=== PATIENT | female | born 1935 | race African-American/Black ===

== ENCOUNTER 2016-09-01 13:02 | Inpatient (IN) | payer MEDICARE, OTHER ==
[~2016-09-01] VITALS: Ht 157.5 cm; Wt 58.8 kg
[~2016-09-01 13:02] MED LIST: ATORVASTATIN CA80 MG PO; CALC-157 PO; CALC-77 PO; CHOL2000 PO; CHOL200074 PO; ESOM20CA PO; GABA-585 PO; HYDR25TA PO; INSU100I16 SQ; LEVO25TA55 PO; LISI-334 PO; Megestrol Acetate PO; PANT40TA3 PO; [UNRECOGNIZED DRUG - OTHER]; [UNRECOGNIZED DRUG - OTHER]
[2016-09-01 16:13] VITALS: BP 105/65
[2016-09-01] MEDS ORDERED: VANCOMYCIN PER PHARMACY MC PRN (16:30)
[2016-09-01] MEDS: INSULN ASP PRT/INSULIN ASPART 300 UNITS/3 ML INSULN.PEN. SQ SCH ×2 (16:30→21:00)
[2016-09-01] MEDS ORDERED: DEXTROSE 50% 25 GM / 50ML DISP.SYRIN. IV PRN (16:30)
[2016-09-01] MEDS ORDERED: VANCOMYCIN 1.5 GM in IV NORMAL SALINE 500ML 500 ML IV ONE (17:00)
[2016-09-01 17:05] LABS: ALBUMIN 3.2 g/dL (3.4-5.0); CALCIUM 9.1 mg/dL (8.5-10.1); CREATININE 1.7 mg/dL (0.6-1.0); GFR 34.9; POTASSIUM 4.9 mmol/L (3.5-5.1); TOTAL BILIRUBIN 0.4 mg/dL (0.2-1.0); TOTAL PROTEIN 6.5 g/dL (6.4-8.2)
[2016-09-01] MEDS ORDERED: INSULIN REGULAR 100 UNIT/ML 10ML VIAL. IV ONE (17:30)
[2016-09-01 17:41] LABS: BASO % 1 % (0-3); EOS # 0.1 x10^3/uL (0.0-0.7); EOS % 1 % (0-3); HEMATOCRIT 38.6 % (36.0-47.0); LYMPH # 0.9 x10^3/uL (1.0-4.8); LYMPH % 14 % (24-48); MEAN CORPUSCULAR HEMOGLOBIN 31 pg (25-35); MEAN CORPUSCULAR HGB CONC 34 g/dL (31-37); MEAN CORPUSCULAR VOLUME 92 fL (79-100); MONO # 0.4 x10^3/uL (0.0-1.1); MONO % 7 % (0-9); NEUT # 4.9 x10^3uL (1.8-7.7); NEUT % 78 % (31-73); PLATELET COUNT 150 x10^3/uL (140-400); RED CELL DISTRIBUTION WIDTH 12.7 % (11.5-14.5); WHITE BLOOD COUNT 6.3 x10^3/uL (4.0-11.0)
[2016-09-01] MEDS: IV NORMAL SALINE 1,000ML 1,000 ML IV SCH (17:46)
[2016-09-01] MEDS ORDERED: ZOLPIDEM 5 MG TABLET. PO PRN (18:15)
[2016-09-01] MEDS ORDERED: oxyCODONE/APAP 5/325 1 TAB TABLET PO PRN (18:15)
[2016-09-01 18:35] VITALS: BP 96/59
[2016-09-01 19:14] LABS: SEDIMENTATION RATE 13 (0-25)
[2016-09-01] MEDS ORDERED: LEVO125T5 PO (19:47)
[2016-09-01] MEDS ORDERED: PREG75CA PO (19:47)
[2016-09-01] MEDS ORDERED: TRIA15CR50 TP (19:47)
[2016-09-01] MEDS ORDERED: MIRA25TA PO (19:47)
[2016-09-01] MEDS ORDERED: FLUT1DIS IH (19:47)
[2016-09-01] MEDS ORDERED: OLOP5DRO EACHEYE (19:47)
[2016-09-01] MEDS ORDERED: ASPI-612 PO (19:47)
[2016-09-01] MEDS ORDERED: AMLO10TA4 PO (19:47)
[2016-09-01] MEDS ORDERED: FURO-69 PO (19:47)
[2016-09-01] MEDS ORDERED: DIPH25CA58 PO (19:47)
[2016-09-01] MEDS ORDERED: ALBU8.5H8 INH (19:47)
[2016-09-01] MEDS ORDERED: DIAZ5TAB PO (19:47)
[2016-09-01] MEDS ORDERED: MONT10TA9 PO (19:47)
[2016-09-01] MEDS ORDERED: HYDR-2762 PO (19:47)
[2016-09-01] MEDS: INSULIN ASPART 300 UNITS/3 ML INSULN.PEN SQ SCH ×2 (19:54→21:00)
[2016-09-01] MEDS ORDERED: diphenhydrAMINE HCL 25 MG CAPSULE PO PRN (20:15)
[2016-09-01] MEDS ORDERED: HYDROcodone/APAP 7.5/325MG 1 TAB TABLET PO PRN (20:15)
[2016-09-01] MEDS ORDERED: diazePAM 5 MG TABLET PO PRN (20:15)
[2016-09-01] MEDS: HYDROcodone/APAP 7.5/325MG 1 TAB TABLET PO PRN (20:52)
[2016-09-01] MEDS ORDERED: INSULN ASP PRT/INSULIN ASPART 300 UNITS/3 ML INSULN.PEN. SQ SCH (21:00)
[2016-09-01] MEDS: hydrOXYzine HCL 25 MG TABLET PO SCH (21:49)
[2016-09-01] MEDS: CALCIUM CARB/VIT D3 500/200 TABLET PO SCH (21:49)
[2016-09-01] MEDS: ATORVASTATIN CALCIUM 20 MG TABLET PO SCH (21:50)
[2016-09-01] MEDS: PREGABALIN 75 MG CAPSULE PO SCH (21:50)
[2016-09-01] MEDS: GABAPENTIN 100 MG CAPSULE. PO SCH (21:50)
[2016-09-01] MEDS: INSULIN DETEMIR 300 UNITS/3 ML INSULN.PEN. SQ SCH (21:56)
[2016-09-01 23:43] VITALS: BP 116/69
[2016-09-02 00:26] LABS: CLARITY,URINE HAZY; COLOR,URINE YELLOW; GLUCOSE,URINE >=1000 mg/dL (NEG)
[2016-09-02 00:30] LABS: BILIRUBIN,URINE NEG (NEG)
[2016-09-02 00:31] LABS: NITRITE,URINE NEG (NEG); UROBILINOGEN,URINE 0.2 mg/dL (0.2 mg/dL)
[2016-09-02 00:33] LABS: BACTERIA,URINE 0 /HPF (0-FEW); RBC,URINE 0 /HPF (0-2); SQUAMOUS EPITHELIAL CELL,UR MANY /LPF; WBC,URINE 0 /HPF (0-4)
[2016-09-02] MEDS: IV NORMAL SALINE 1,000ML 1,000 ML IV SCH ×3 (05:20→22:30)
[2016-09-02 05:29] VITALS: BP 169/75
[2016-09-02] MEDS ORDERED: LEVOTHYROXINE 25 MCG TABLET. PO SCH (06:00)
[2016-09-02] MEDS: LEVOTHYROXINE 125 MCG TABLET PO SCH (07:21)
[2016-09-02] MEDS: PANTOPRAZOLE 40 MG TABLET. PO SCH (08:16)
[2016-09-02] MEDS: INSULIN ASPART 300 UNITS/3 ML INSULN.PEN SQ SCH ×4 (08:18→20:08)
[2016-09-02] MEDS ORDERED: MEGESTROL 40 MG TABLET. PO PRN (09:00)
[2016-09-02] MEDS: GABAPENTIN 100 MG CAPSULE. PO SCH ×2 (09:57→20:01)
[2016-09-02] MEDS: MONTELUKAST 10 MG TABLET. PO SCH (09:57)
[2016-09-02] MEDS: hydrOXYzine HCL 25 MG TABLET PO SCH ×2 (09:57→20:01)
[2016-09-02] MEDS: FUROSEMIDE 20 MG TABLET PO SCH (10:03)
[2016-09-02] MEDS: LISINOPRIL 20 MG TABLET PO SCH (10:03)
[2016-09-02] MEDS: CALCIUM CARB/VIT D3 500/200 TABLET PO SCH ×2 (10:03→20:01)
[2016-09-02] MEDS: PREGABALIN 75 MG CAPSULE PO SCH ×2 (10:04→20:01)
[2016-09-02] MEDS: APIXABAN 2.5 MG TABLET PO SCH ×2 (10:08→20:01)
[2016-09-02] MEDS: INSULIN DETEMIR 300 UNITS/3 ML INSULN.PEN. SQ SCH ×2 (10:09→20:08)
[2016-09-02 11:00] VITALS: BP 122/69
--- NOTE | 2016-09-02 14:30 | RAD ---
Indication: Left hand pain and swelling for several days. The patient was administered 25 mCi technetium 99m MDP intravenously and dynamic flow, blood pool and delayed imaging over bilateral hands and wrists was performed. There is asymmetric increased blood flow to the left hand and wrist, particularly on the radial side. Mild increased blood pool activity is also seen. No significant abnormal delayed uptake is identified to suggest osteomyelitis. There is some uptake at the first CMC joint on the right consistent with degenerative change. Impression: Increased blood flow and blood pool activity in the left hand and wrist, perhaps owing to cellulitis. No findings to suggest osteomyelitis are identified.
[2016-09-02] MEDS: ONDANSETRON PF 4 MG/2 ML VIAL. IV PRN ×2 (14:38→19:12)
[2016-09-02] MEDS: MEROPENEM 1 GM in IV NORMAL SALINE 100ML 100 ML IV SCH (14:38)
[2016-09-02 14:55] VITALS: BP 126/72
--- NOTE | 2016-09-02 15:57 | RAD ---
Indication: Left leg swelling. Grayscale, color-flow and duplex Doppler evaluation left lower extremity venous system was performed. FINDINGS: There is no evidence of a left lower extremity DVT. The left lower extremity venous system demonstrates normal compressibility with normal response to augmentation and Valsalva. No soft tissue fluid collections are identified. IMPRESSION: No evidence of left lower extremity DVT.
--- NOTE | 2016-09-02 15:58 | RAD ---
Indication: Cellulitis of the left hand. Grayscale, color-flow and duplex Doppler evaluation of the venous structures the left wrist were performed. The radial and ulnar veins appear to be patent. The basilic and cephalic veins are patent. No thrombus is seen. No fluid collections are identified. Impression: No evidence of thrombus of the radial or ulnar veins or basilic and cephalic veins.
[2016-09-02] MEDS ORDERED: VANCOMYCIN 1 GM in IV NORMAL SALINE 250ML 250 ML IV SCH (17:00)
[2016-09-02] MEDS: VANCOMYCIN 1 GM in IV NORMAL SALINE 250ML 250 ML IV SCH (17:19)
[2016-09-02 18:18] VITALS: BP 107/59
[2016-09-02 18:24] VITALS: BP 150/61
[2016-09-02] MEDS: HYDROcodone/APAP 7.5/325MG 1 TAB TABLET PO PRN (19:12)
[2016-09-02] MEDS: ATORVASTATIN CALCIUM 20 MG TABLET PO SCH (20:01)
--- NOTE | 2016-09-03 00:13 | PN ---
DATE: 09/02/2016 SUBJECTIVE: The patient was admitted yesterday with cellulitis to her left hand as well as lymphangitis going upper arm. She is a poorly controlled diabetic. Her blood sugar was over 600. The patient is on vancomycin and her hand was more swollen as it was yesterday as a result of that throughout meropenem along with vancomycin per [place]'s recommendations. The patient otherwise seems to be resting fairly comfortably, making fairly good progress. Her blood sugars are down at least in the upper 100-200, which is markedly improved. Bone scan shows significant cellulitis, but not osteomyelitis. She also has swollen left leg, but she has not reported that anybody for six months. She is on Eliquis. We will get a venous Doppler on her there. OBJECTIVE: VITAL SIGNS: Otherwise, blood pressure 130/70, respiration 16, pulse 80, afebrile. GENERAL: The patient is alert and oriented. LUNGS: Diminished, but clear. CARDIOVASCULAR: Stable. EXTREMITIES: Left hand swollen, tender, red and hot, lymphangitis left forearm. We will go ahead and continue with IV antibiotic therapy. PICC line placement and make further evaluation upon those results. IMPRESSION: Cellulitis to the left hand lymphangitis SIRS, type 2 diabetes, hyperglycemia, fairly poorly controlled. Continue on IV antibiotic therapy controlling blood sugars. CYNTHIA GONZALEZ MD DR: AL/princess JOB#: [id number] / [id number]
[2016-09-03] MEDS: LEVOTHYROXINE 125 MCG TABLET PO SCH (05:58)
[2016-09-03 06:23] VITALS: BP 111/58
[2016-09-03] MEDS: INSULIN ASPART 300 UNITS/3 ML INSULN.PEN SQ SCH ×2 (07:30→12:01)
[2016-09-03] MEDS: IV NORMAL SALINE 1,000ML 1,000 ML IV SCH (08:30)
[2016-09-03] MEDS: hydrOXYzine HCL 25 MG TABLET PO SCH (08:55)
[2016-09-03] MEDS: APIXABAN 2.5 MG TABLET PO SCH (08:55)
[2016-09-03] MEDS: PREGABALIN 75 MG CAPSULE PO SCH (08:55)
[2016-09-03] MEDS: LISINOPRIL 20 MG TABLET PO SCH (08:55)
[2016-09-03] MEDS: FUROSEMIDE 20 MG TABLET PO SCH (08:55)
[2016-09-03] MEDS: GABAPENTIN 100 MG CAPSULE. PO SCH (08:55)
[2016-09-03] MEDS: MONTELUKAST 10 MG TABLET. PO SCH (08:56)
[2016-09-03] MEDS: PANTOPRAZOLE 40 MG TABLET. PO SCH (08:56)
[2016-09-03] MEDS: CALCIUM CARB/VIT D3 500/200 TABLET PO SCH (08:56)
[2016-09-03] MEDS: INSULIN DETEMIR 300 UNITS/3 ML INSULN.PEN. SQ SCH (09:00)
[2016-09-03] MEDS ORDERED: traMADol 50 MG TABLET PO PRN (10:15)
[2016-09-03] MEDS ORDERED: VANC1PLA9 IV (11:39)
[2016-09-03] MEDS ORDERED: INSU100I17 SQ (11:39)
[2016-09-03] MEDS ORDERED: MERO1VIA15 IV (11:39)
[2016-09-03] MEDS ORDERED: INSU100I27 SQ (11:39)
[2016-09-03] MEDS ORDERED: TRAM50TA PO (11:39)
[2016-09-03] MEDS ORDERED: ONDA4TAB10 SL (11:41)
[2016-09-03] MEDS: MEROPENEM 1 GM in IV NORMAL SALINE 100ML 100 ML IV SCH (11:57)
[2016-09-03] MEDS: VANCOMYCIN 1 GM in IV NORMAL SALINE 250ML 250 ML IV SCH (12:58)
[2016-09-03 13:39] LABS: VANC TR 8.3 mcg/mL (10.0-20.0)
[2016-09-03] MEDS: HYDROcodone/APAP 7.5/325MG 1 TAB TABLET PO PRN (14:44)
[2016-09-10] MEDS ORDERED: ERGOCALCIFEROL (VITAMIN D2) 50,000 UNIT CAPSULE PO SCH (16:00)
== END 2016-09-03 14:55 | disposition home or self-care (01) | DRG 872 ==
LOC: 1 SOUTH 15:42
PROVIDERS: ADMIT Family Medicine; ATTEND Family Medicine
PROC: 02HV33Z Insertion of Infusion Device into Superior Vena Cava, Percutaneous Approach (ICD-10-PCS; principal; 2016-09-02)
DX: A41.9 Sepsis, unspecified organism (principal); L03.114 Cellulitis of left upper limb; E11.65 Type 2 diabetes mellitus with hyperglycemia; Z88.2 Allergy status to sulfonamides
CPT/HCPCS: 36415; 36569; 78315; 80053; 80202; 81001; 82947; 83605; 85027; 85651; 86140; 87040; 93971; 96374; 99406; A9503; J0696; J1815; J2185; J2405; J3370; J7040; J7050; J7030

== ENCOUNTER 2018-01-11 03:54 | Inpatient (IN) | payer MEDICARE, OTHER ==
[~2018-01-11] VITALS: Ht 157.5 cm; Wt 63.5 kg
[~2018-01-11 03:54] MED LIST changes: +ALBU8.5H8 INH; +AMLO10TA4 PO; +ASPI-612 PO; +DIAZ5TAB PO; +DIPH25CA58 PO; +FLUT1DIS IH; +FURO-69 PO; +HYDR-2762 PO; +INSU100I17 SQ; +INSU100I27 SQ; +LEVO125T5 PO; +MERO1VIA15 IV; +MIRA25TA PO; +MONT10TA9 PO; +OLOP5DRO EACHEYE; +ONDA4TAB10 SL; +PREG75CA PO; +TRAM50TA PO; +TRIA15CR50 TP; +VANC1PLA9 IV
[2018-01-11] MEDS ORDERED: INSULIN REGULAR 100 UNIT/ML 3ML VIAL. IV ONE (04:30)
[2018-01-11] MEDS ORDERED: IV NORMAL SALINE 1,000ML 1,000 ML IV ONE ×2 (04:30)
--- NOTE | 2018-01-11 04:43 | ED.ADGEN ---
Past History Past Medical History: Diabetes, High Cholesterol, Hypertension, Other Past Surgical History: No Surgical History Alcohol Use: None Drug Use: None Adult General Chief Complaint Chief Complaint Elevated blood sugar HPI HPI Patient is a 82-year-old female with insulin-dependent diabetes presents with mental status changes, nausea and blood sugar greater than 600. Patient reportedly been feeling unwell for the past 2 days has had very little to eat but has been drinking fluids. As such, the patient has not taken any insulin the past 48 hours with exception of 1 dose NovoLog just prior to ED arrival. Patient's blood sugar at home read high per EMS. Patient also noted to be hypotensive and given 1 L of fluid per EMS. Patient reports generalized weakness, malaise, and also complaints of hemorrhoids and constipation and has had multiple bowel movements today. She also reports neck pain on route to the hospital, but did not complain of neck pain earlier in the day according to family members. Patient lives with her son. Additional history obtained from her daughter Kasie who is present at bedside. Patient's primary care physician is Dr Stan Iglesias..[] Review of Systems Review of Systems ROS as per HPI All other systems were reviewed and found to be within normal limits, except as documented in this note. Current Medications Current Medications Current Medications Medications (Trade) Dose Ordered Sig/Isaac Start Time Stop Time Status Last Admin Dose Admin Famotidine (Pepcid Vial) 20 mg 1X ONCE 01/11/18 05:30 01/11/18 05:31 DC 01/11/18 05:02 20 MG Fentanyl Citrate (Fentanyl 2ml Vial) 25 mcg 1X ONCE 01/11/18 05:30 01/11/18 05:31 DC 01/11/18 04:58 25 MCG Insulin Human Regular (HumuLIN R VIAL) 10 unit 1X ONCE 01/11/18 04:30 01/11/18 04:31 DC 01/11/18 04:30 10 UNIT Ondansetron HCl (Zofran) 4 mg STK-MED ONCE 01/11/18 04:55 01/11/18 04:56 DC Potassium Chloride/Sodium Chloride 1,000 ml @ As Directed STK-MED ONCE 01/11/18 05:41 01/11/18 05:42 DC Sodium Chloride 1,000 ml @ 1,000 mls/hr 1X ONCE 01/11/18 04:30 01/11/18 05:30 DC 10/13/18 05:07 1,000 MLS/HR Allergies Allergies Allergies Coded Allergies Type Severity Reaction Last Updated Verified Sulfa (Sulfonamide Antibiotics) Allergy Intermediate 06/30/13 Yes Physical Exam Physical Exam Constitutional: Somnolent, Moaning between deep breaths, acutely ill appearing.[ ] HENT: Normocephalic, atraumatic, bilateral external ears normal, dry mucous membranes, nose normal. [] Eyes: PERRLA, EOMI, conjunctiva normal. [] Neck: Normal range of motion, no tenderness. [] Cardiovascular:Heart rate regular rhythm, no murmur [] Lungs & Thorax: Tachypnea, deep breathing, lungs clear.[] Abdomen: Bowel sounds normal, soft, no tenderness. [] Skin: Warm, dry, appropriate for ethnicity.[] Back: No tenderness. [] Extremities, No edema. [] Neurologic: Alert and oriented X 3, normal motor function, normal sensory function, no focal deficits noted. [] Current Patient Data Vital Signs Vital Signs Date Time Temp Pulse Resp B/P (MAP) Pulse Ox O2 Delivery O2 Flow Rate FiO2 01/11/18 05:15 16 Room Air 01/11/18 04:44 87 113/57 (75) 100 01/11/18 03:55 97.9 Lab Results Laboratory Tests Test 01/11/18 03:14 01/11/18 04:14 01/11/18 05:02 01/11/18 05:21 Lipase 126 U/L (73-393) White Blood Count 10.5 x10^3/uL (4.0-11.0) Red Blood Count 4.92 x10^6/uL (3.50-5.40) Hemoglobin 15.1 g/dL (12.0-15.5) Hematocrit 45.8 % (36.0-47.0) Mean Corpuscular Volume 93 fL (79-100) Mean Corpuscular Hemoglobin 31 pg (25-35) Mean Corpuscular Hemoglobin Concent 33 g/dL (31-37) Red Cell Distribution Width 12.8 % (11.5-14.5) Platelet Count 202 x10^3/uL (140-400) Neutrophils (%) (Auto) 86 % (31-73) H Lymphocytes (%) (Auto) 12 % (24-48) L Monocytes (%) (Auto) 1 % (0-9) Eosinophils (%) (Auto) 0 % (0-3) Basophils (%) (Auto) 0 % (0-3) Neutrophils # (Auto) 9.0 x10^3uL (1.8-7.7) H Lymphocytes # (Auto) 1.2 x10^3/uL (1.0-4.8) Monocytes # (Auto) 0.2 x10^3/uL (0.0-1.1) Eosinophils # (Auto) 0.0 x10^3/uL (0.0-0.7) Basophils # (Auto) 0.0 x10^3/uL (0.0-0.2) Prothrombin Time 11.9 SEC (9.4-11.4) H Prothrombin Time INR 1.2 (0.9-1.1) H Urine Collection Type U cath Urine Color Straw Urine Clarity Clear Urine pH 5.5 Urine Specific [place] <=1.005 Urine Protein Trace (NEG-TRACE) Urine Glucose (UA) >=1000 mg/dL (NEG) Urine Ketones (Stick) Trace mg/dL (NEG) Urine Blood Trace (NEG) Urine Nitrite Neg (NEG) Urine Bilirubin Neg (NEG) Urine Urobilinogen Dipstick 0.2 mg/dL (0.2 mg/dL) Urine Leukocyte Esterase Neg (NEG) Urine RBC Rare /HPF (0-2) Urine WBC 0 /HPF (0-4) Urine Squamous Epithelial Cells Occ /LPF Urine Bacteria 0 /HPF (0-FEW) Sodium Level 138 mmol/L (136-145) Potassium Level 2.9 mmol/L (3.5-5.1) *L Chloride Level 99 mmol/L (98-107) Carbon Dioxide Level 20 mmol/L (21-32) L Anion Gap 19 (6-14) H Blood Urea Nitrogen 20 mg/dL (7-20) Creatinine 1.9 mg/dL (0.6-1.0) H Estimated GFR (Cockcroft-Gault) 30.6 BUN/Creatinine Ratio 11 (6-20) Glucose Level 610 mg/dL (70-99) *H Lactic Acid Level 9.7 mmol/L (0.4-2.0) *H Calcium Level 9.7 mg/dL (8.5-10.1) Magnesium Level 1.9 mg/dL (1.8-2.4) Total Bilirubin 0.9 mg/dL (0.2-1.0) Aspartate Amino Transferase (AST) 44 U/L (15-37) H Alanine Aminotransferase (ALT) 37 U/L (14-59) Alkaline Phosphatase 253 U/L (46-116) H Troponin I Quantitative < 0.017 ng/mL (0-0.055) Total Protein 6.1 g/dL (6.4-8.2) L Albumin 3.1 g/dL (3.4-5.0) L Albumin/Globulin Ratio 1.0 (1.0-1.7) Salicylates Level 5.8 mg/dL (2.8-20.0) Salicylate Last Dose Date 01/11/2018 Salicylate Last Dose Time 0100 Acetone Level Neg (NEG) Blood pH 7.44 (7.35-7.45) Blood Gas PCO2 20 mmHg (35-45) L Blood Gas PO2 108 mmHg (71-100) H Blood Gas HCO3 14 mmol/L (22-26) L Arterial Bld O2 Saturation (Calc) 99 % (92-99) FiO2 21 % Glucose (Fingerstick) 454 mg/dL (70-99) H EKG EKG [EKG: Sinus rhythm, rate 87, nonspecific ST-T wave changes, QTC 498. Interpretation by this physician.] Radiology/Procedures Radiology/Procedures [CT abdomen pelvis: Large fecal impaction, no other acute process identified per radiology report. CT angio abdomen/pelvis: Pending ] Course & Med Decision Making Course & Med Decision Making Pertinent Labs and Imaging studies reviewed. (See chart for details) [Aggressive IV fluids, insulin therapy given. Blood sugar improved from 610- 1454. Potassium noted to be 2.9. IV fluids with potassium additive replacement given. CT abdomen and pelvis without contrast reviewed with radiologist, and Dr. Vaz on-call for general surgery at [facility]. Given the patient has an elevated lactic acid greater than 9, is felt necessary to obtain a CT angiogram of the abdomen and pelvis to rule out ischemic bowel. Risks versus benefits versus alternatives discussed in detail with the patient's daughter who is medical decision maker. Consent given to proceed with CT angiogram. CT is pending at the time of this dictation. Care and being transitioned to Dr. Adelfo Bush at 06:00. It is anticipated that if the is evidence of ischemic bowel that the patient will require an answer to [facility].] Final Impression Final Impression [] Ayaan Disclaimer Dragzofia Disclaimer This electronic medical record was generated, in whole or in part, using a voice recognition dictation system. NOEL MARIE DO Jan 11, 2018 04:43
[2018-01-11 04:44] LABS: BASO % 0 % (0-3); EOS % 0 % (0-3); HEMATOCRIT 45.8 % (36.0-47.0); HEMOGLOBIN 15.1 g/dL (12.0-15.5); LYMPH # 1.2 x10^3/uL (1.0-4.8); LYMPH % 12 % (24-48); MEAN CORPUSCULAR HEMOGLOBIN 31 pg (25-35); MEAN CORPUSCULAR HGB CONC 33 g/dL (31-37); MEAN CORPUSCULAR VOLUME 93 fL (79-100); MONO # 0.2 x10^3/uL (0.0-1.1); MONO % 1 % (0-9); NEUT % 86 % (31-73); PLATELET COUNT 202 x10^3/uL (140-400); RED BLOOD COUNT 4.92 x10^6/uL (3.50-5.40); RED CELL DISTRIBUTION WIDTH 12.8 % (11.5-14.5); WHITE BLOOD COUNT 10.5 x10^3/uL (4.0-11.0)
[2018-01-11 04:48] LABS: BILIRUBIN,URINE NEG (NEG); CLARITY,URINE CLEAR; COLOR,URINE STRAW; GLUCOSE,URINE >=1000 mg/dL (NEG)
[2018-01-11 04:49] LABS: BACTERIA,URINE 0 /HPF (0-FEW); NITRITE,URINE NEG (NEG); RBC,URINE RARE /HPF (0-2); SQUAMOUS EPITHELIAL CELL,UR OCC /LPF; UROBILINOGEN,URINE 0.2 mg/dL (0.2 mg/dL); WBC,URINE 0 /HPF (0-4)
[2018-01-11] MEDS ORDERED: ONDANSETRON PF 4 MG/2 ML VIAL. ONE (04:55)
[2018-01-11 05:05] LABS: SALIC 5.8 mg/dL (2.8-20.0)
--- NOTE | 2018-01-11 05:07 | RAD ---
Chest AP portable at 0415: Reason for examination: Short of breath with low chest pain and upper abdominal pain. Comparison is made to previous study dated 10/02/2009. The heart size is normal. Mediastinum is unremarkable. Lung downs show a calcified granuloma in the mid right lung field. No consolidative infiltrates or pleural effusions are seen. No acute bony abnormalities are seen. Impression: No acute cardiopulmonary disease. Electronically signed by: Silvana Miller MD (01/11/2018 5:04 AM) [place] [id number]
[2018-01-11 05:16] LABS: ALBUMIN 3.1 g/dL (3.4-5.0); CALCIUM 9.7 mg/dL (8.5-10.1); CREATININE 1.9 mg/dL (0.6-1.0); GFR 30.6; MAGNESIUM 1.9 mg/dL (1.8-2.4); TOTAL BILIRUBIN 0.9 mg/dL (0.2-1.0); TOTAL PROTEIN 6.1 g/dL (6.4-8.2)
[2018-01-11 05:16] LABS: BGAS PH 7.44 (7.35-7.45)
[2018-01-11 05:19] LABS: POTASSIUM 2.9 mmol/L (3.5-5.1)
[2018-01-11] MEDS ORDERED: ONDANSETRON PF 4 MG/2 ML VIAL. IV ONE ×2 (05:30→06:30)
[2018-01-11] MEDS ORDERED: FAMOTIDINE 20 MG/2 ML VIAL IVP ONE (05:30)
[2018-01-11] MEDS ORDERED: POTASSIUM CL 40MEQ IN 0.9%NACL 1,000 ML IV ONE ×2 (05:41→06:00)
--- NOTE | 2018-01-11 05:43 | RAD ---
CT abdomen and pelvis without contrast: Reason for examination: Severe abdominal pain and flank pain with nausea and vomiting for 2 days. Helical images were obtained through the abdomen pelvis with no intravenous or oral contrast administered. Reconstruction was performed in sagittal and coronal planes. Exposure: One or more of the following individualized dose reduction techniques were utilized for this examination: 1. Automated exposure control 2. Adjustment of the mA and/or kV according to patient size 3. Use of iterative reconstruction technique. The lung bases are clear. The heart size is normal with no pericardial effusion. No abnormality seen at the liver, spleen, adrenal glands or pancreas. Gallbladder surgically absent. The abdominal aorta and inferior vena cava show no acute abnormalities but there are arteriosclerotic vascular calcifications. The kidneys show no renal masses, renal calculi, hydronephrosis or evidence of obstructive uropathy. The intestinal tract however shows a markedly distended sigmoid colon and rectum with large amount of stool present. There does not appear to be site of obstruction. The small intestine and proximal colon shows some mild dilatation but no site of obstruction. The stomach shows a large amount of gastric content and fluid. A Mehta catheter is present in the bladder and the bladder is decompressed. Uterus contains a calcified fibroid measuring at least 4.5 cm in greatest dimension. No free fluid or free air is seen in the abdomen or pelvis. IMPRESSION: No gallstones are obstructive uropathy. Marked distention of the sigmoid colon and rectum with a large amount of fecal material with mild dilatation of the proximal colon, small intestine and stomach. A focal site of obstruction is not identified. 4.5 cm calcified uterine fibroid. Electronically signed by: Silvana Miller MD (01/11/2018 5:40 AM) [facility]
[2018-01-11] MEDS ORDERED: CONTRAST GIVEN MC PRN (06:15)
[2018-01-11] MEDS ORDERED: IOHEXOL 300 MG/ML 75 ML VIAL. IV ONE (06:30)
--- NOTE | 2018-01-11 08:02 | RAD ---
PQRS Compliance Statement: One or more of the following individualized dose reduction techniques were utilized for this examination: 1. Automated exposure control 2. Adjustment of the mA and/or kV according to patient size 3. Use of iterative reconstruction technique CT ANGIOGRAPHY ABD AND PELVIS Clinical Indication: abd pain, blockage, x 1 day, Elevated lactic acid Comparison: CT abdomen and pelvis without contrast, earlier same day. Technique: Helical CT imaging of the abdomen and pelvis is performed after 60 cc of Omnipaque 300 IV contrast using angiogram protocol. 3-D MIP reconstructions of the abdominal aorta performed. Findings: The visualized descending thoracic aorta is normal in caliber. The celiac and superior mesenteric arteries are patent. Right and left main renal arteries are patent. Small caliber accessory left renal artery. The inferior mesenteric artery is patent, small caliber. Moderate atherosclerotic calcification distal abdominal aorta. No aneurysm. Atherosclerotic iliac arteries. Moderate narrowing of the proximal right internal iliac artery. Mild atherosclerotic disease of the right external iliac artery and femoral arteries. Similar finding on the left. No high-grade stenosis. Mild atelectasis in the left lower lobe. Cardiac size normal. Coronary artery disease. Cholecystectomy. Liver, arterial phase spleen, pancreas, and adrenal glands are normal. Kidneys enhance symmetrically, no hydronephrosis. Small right renal cyst. Stomach is not well distended accentuating wall thickness. Question gastric fundal diverticulum. No small bowel obstruction. The rectum is moderately distended with stool. There is borderline wall thickening. There is surrounding induration. There is wall thickening of the distal transverse colon and descending colon with mucosal hyperenhancement. There is free fluid in the upper pelvis. Calcified uterine fibroid. Mehta catheter in decompressed urinary bladder. Limited evaluation of the urinary bladder. Degenerative spondylosis of the thoracolumbar spine. Vacuum disc phenomenon at several levels. Large Schmorl's node superior endplate of L5. IMPRESSION: 1. Abdominal aorta branches are patent. 2. There is moderate distention of the rectosigmoid colon with stool compatible with fecal impaction. There is surrounding induration. No pneumatosis is seen. 3. There is wall thickening of the distal half of the colon suggestive of nonspecific colitis, probably infectious or inflammatory disease. Ischemic colitis less likely. 4. There is moderate upper pelvic free fluid. 5. Calcified uterine fibroid. Electronically signed by: Ebenezer Unger MD (01/11/2018 7:59 AM) [facility]
[2018-01-11 08:41] LABS: CALCIUM 8.8 mg/dL (8.5-10.1); CREATININE 1.4 mg/dL (0.6-1.0); GFR 43.6
[2018-01-11] MEDS ORDERED: ONDANSETRON PF 4 MG/2 ML VIAL. IV PRN (09:00)
--- NOTE | 2018-01-11 09:04 | EKG ---
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
[2018-01-11 09:37] VITALS: BP 101/66
[2018-01-11] MEDS ORDERED: HYDROcodone/APAP 7.5/325MG 1 TAB TABLET PO PRN (11:00)
[2018-01-11] MEDS ORDERED: diazePAM 5 MG TABLET PO PRN (11:00)
[2018-01-11] MEDS ORDERED: ALBUTEROL SULFATE 8GM INHALER. INH PRN (11:00)
[2018-01-11] MEDS ORDERED: NON FORMULARY ITEM (Cholecalciferol (Vitamin D3) (Vitamin D) 50,000 UNIT) PO SCH (11:00)
[2018-01-11] MEDS ORDERED: traMADol 50 MG TABLET PO PRN (11:00)
[2018-01-11] MEDS ORDERED: ELECTROLYTE (NON-ICU) PROTOCOL MC PRN (11:15)
[2018-01-11] MEDS ORDERED: BISACODYL 10 MG SUPP.RECT PR ONE (11:15)
[2018-01-11] MEDS ORDERED: MINERAL OIL 133 ML ENEMA. PR ONE (11:30)
[2018-01-11] MEDS ORDERED: NON FORMULARY ITEM (Insulin Aspart (Novolog Flexpen) 0 UNITS) SQ SCH (11:30)
[2018-01-11 12:22] VITALS: BP 83/53
[2018-01-11] MEDS ORDERED: ALBUTEROL SULFATE 2.5 MG/3 ML NEBU. NEB PRN (13:45)
[2018-01-11] MEDS ORDERED: ONDANSETRON 4MG ODT 4TABLET STARTPACK. PO SCH (14:00)
[2018-01-11] MEDS ORDERED: IV NORMAL SALINE 500ML 500 ML IV ONE (14:00)
[2018-01-11] MEDS: POTASSIUM CHLORIDE 10MEQ 100 ML IV SCH ×4 (14:39→17:34)
[2018-01-11] MEDS ORDERED: DEXTROSE 50% 25 GM / 50ML DISP.SYRIN. IV PRN (14:45)
[2018-01-11 15:24] VITALS: BP 103/72
[2018-01-11] MEDS: TRIAMCINOLONE ACETONIDE 0.1% TOPICAL CREAM 15GM TUBE. TP SCH ×2 (15:44→21:45)
[2018-01-11] MEDS: INSULIN LISPRO 300 UNITS/3 ML INSULN.PEN. SQ SCH ×2 (16:37→20:30)
[2018-01-11] MEDS: ALBUTEROL SULFATE 2.5 MG/3 ML NEBU. NEB SCH ×2 (16:55→20:35)
[2018-01-11] MEDS: IV NORMAL SALINE 1,000ML 1,000 ML IV SCH ×3 (17:00→21:09)
[2018-01-11 19:45] VITALS: BP 106/64
--- NOTE | 2018-01-11 19:52 | HP ---
ADMIT DATE: 01/11/2018 HISTORY OF PRESENT ILLNESS: An 82-year-old female came in through the Emergency Room by EMS. The patient was having severe abdominal pain. She says she has been sick for the last week, but refused to come in to the hospital or clinic. The patient has been having a little to eat or drink for the last couple of days. She is a diabetic, is poorly controlled. Her sugar was over 600. When she first came in, she was extremely hypotensive. EMS gave her a liter of fluids. The patient also has been complaining of abdominal pain, lower back pain as well as hemorrhoids. The patient was found to have a large impaction as well as having colitis of her colon. The patient was admitted for a number of reasons, sepsis basically from her colitis, hypotension, and the like. PAST MEDICAL HISTORY: As noted, diabetes, peripheral neuropathy of her feet, hypercholesterolemia, hypertension, colitis, hemorrhoids, abdominal pain, laparoscopic cholecystectomy, nausea, vomiting, GERD, tubal ligation, abnormal uterine bleeding, arthritis, osteoarthritis, osteoporosis, diabetes, hypothyroidism. SOCIAL HISTORY: History of smoking, smoked for about 75 years. The patient has a history of skin cancer. Vaccinations for influenza last year, pneumococcal up-to-date. As noted, the patient continues to try to smoke. Denies alcohol or drug use. Lives at home by herself. FAMILY HISTORY: Father with diabetes, mother with some form of cancer. ALLERGIES: SULFA DRUGS. MEDICATIONS: Include ProAir inhaler, Lipitor 80 mg, Norvasc 10 mg, lisinopril 20 mg, aspirin 81 mg, hydrocodone, gabapentin 100 mg b.i.d., Lyrica 75 mg, diazepam 5 mg q.6 p.r.n., hydroxyzine, calcium carbonate, furosemide, timolol eyedrops, insulin, thyroid levothyroxine 125 mcg daily, triamcinolone, and Myrbetriq 25 mg at bedtime. REVIEW OF SYSTEMS: Positive for nausea, vomiting, severe abdominal pain, change in mental status, extreme weakness, failure to thrive, diaphoresis. Denies chest pain or shortness of breath per se, but she is extremely weak and very, very weak, and sedate. PHYSICAL EXAMINATION: VITAL SIGNS: Blood pressure 92/52, respiratory rate 12, pulse 100, afebrile. HEENT: The patient is arousable, alert, but dry mucous membranes, dry skin. The patient's eyes were PERRLA. Mouth and throat: Dry mucous membranes. NECK: Supple. LUNGS: Diminished, but clear. CARDIOVASCULAR: Regular sinus rhythm. ABDOMEN: Soft, diffuse tenderness especially in the. EXTREMITIES: No clubbing, cyanosis, or edema. NEUROLOGIC: The patient was alert and oriented x 2, for now, although she is very slow and answering probably secondary to her dehydration and the like. LABORATORY DATA: As noted demonstrated the sugar of 600. Her CBC was basically unremarkable. Her potassium was also low at 2.9. Lactic acid was as high as 9.7. TSH elevated at 11. The patient nearly given large copious amounts of fluid, antibiotics, potassium supplementation, close monitoring obviously in all other situations there. IMPRESSION: Change in mental status, sepsis, colitis, bowel impaction, type 2 diabetes, extremely poorly controlled, hypokalemia, chronic kidney disease stage 3. PLAN: The patient continued on intravenous fluids, intravenous antibiotic therapy, and make further evaluation on her as indicated. CYNTHIA GONZALEZ MD DR: AL/princess JOB#: [id number] / [id number]
[2018-01-11] MEDS: CALCIUM CARB/VIT D3 500/200 TABLET PO SCH (20:17)
[2018-01-11] MEDS: KETOTIFEN FUMARATE 0.025% OPHT SOLUTION BOTTLE. OU SCH (20:26)
[2018-01-11] MEDS: BUDESONIDE 0.5 MG/2 ML NEBU NEB SCH (20:35)
[2018-01-11] MEDS: INSULIN GLARGINE 300 UNITS/3 ML INSULN.PEN. SQ SCH (20:41)
[2018-01-11] MEDS ORDERED: NON FORMULARY ITEM (Fluticasone/Salmeterol (Advair 100-50 Diskus) 1 PUFF) IH SCH (21:00)
[2018-01-11] MEDS ORDERED: GABAPENTIN 100 MG CAPSULE. PO SCH (21:00)
[2018-01-11] MEDS ORDERED: hydrOXYzine HCL 25 MG TABLET PO SCH (21:00)
[2018-01-11] MEDS ORDERED: ATORVASTATIN CALCIUM 20 MG TABLET PO SCH (21:00)
[2018-01-11] MEDS: PREGABALIN 75 MG CAPSULE PO SCH (21:45)
[2018-01-11 22:54] VITALS: BP 102/65
[2018-01-12] MEDS: IV NORMAL SALINE 1,000ML 1,000 ML IV SCH (05:14)
[2018-01-12 05:26] VITALS: BP 107/69
[2018-01-12] MEDS: ALBUTEROL SULFATE 2.5 MG/3 ML NEBU. NEB SCH (05:29)
[2018-01-12] MEDS ORDERED: LEVOTHYROXINE 125 MCG TABLET PO SCH (06:00)
[2018-01-12] MEDS ORDERED: LEVOTHYROXINE 100 MCG TABLET PO SCH (06:00)
[2018-01-12 07:23] LABS: BASO % 0 % (0-3); EOS % 0 % (0-3); HEMATOCRIT 40.1 % (36.0-47.0); HEMOGLOBIN 13.3 g/dL (12.0-15.5); LYMPH # 0.2 x10^3/uL (1.0-4.8); LYMPH % 2 % (24-48); MEAN CORPUSCULAR HEMOGLOBIN 31 pg (25-35); MEAN CORPUSCULAR HGB CONC 33 g/dL (31-37); MEAN CORPUSCULAR VOLUME 93 fL (79-100); MONO # 0.3 x10^3/uL (0.0-1.1); MONO % 3 % (0-9); NEUT # 10.6 x10^3uL (1.8-7.7); NEUT % 95 % (31-73); PLATELET COUNT 136 x10^3/uL (140-400); RED BLOOD COUNT 4.32 x10^6/uL (3.50-5.40); RED CELL DISTRIBUTION WIDTH 13.6 % (11.5-14.5); WHITE BLOOD COUNT 11.1 x10^3/uL (4.0-11.0)
[2018-01-12 07:38] LABS: ALBUMIN 2.1 g/dL (3.4-5.0); ALBUMIN/GLOBULIN RATIO 0.7 (1.0-1.7); CALCIUM 8.4 mg/dL (8.5-10.1); CREATININE 1.6 mg/dL (0.6-1.0); GFR 37.3; POTASSIUM 5.2 mmol/L (3.5-5.1); TOTAL BILIRUBIN 0.6 mg/dL (0.2-1.0)
[2018-01-12] MEDS: BUDESONIDE 0.5 MG/2 ML NEBU NEB SCH (08:00)
[2018-01-12] MEDS ORDERED: ASPIRIN 81 MG TAB.CHEW PO SCH (08:00)
[2018-01-12 08:02] LABS: % BANDS 26 % (0-9); % LYMPHS 2 % (24-48); % METAS 4 % (0-0); % MYELOS 1 % (0-0); % SEGS 67 % (35-66)
[2018-01-12 08:03] LABS: PLT ESTIMATE DECREASED (ADEQUATE); TOXIC GRANULATION SLIGHT; TOXIC VACUOLATION SLIGHT
[2018-01-12 08:05] LABS: POLYCHROMASIA PRESENT
[2018-01-12] MEDS: CALCIUM CARB/VIT D3 500/200 TABLET PO SCH (08:31)
[2018-01-12] MEDS: PREGABALIN 75 MG CAPSULE PO SCH (08:32)
[2018-01-12] MEDS: KETOTIFEN FUMARATE 0.025% OPHT SOLUTION BOTTLE. OU SCH (08:32)
[2018-01-12] MEDS: INSULIN LISPRO 300 UNITS/3 ML INSULN.PEN. SQ SCH ×2 (08:48→11:30)
[2018-01-12] MEDS: TRIAMCINOLONE ACETONIDE 0.1% TOPICAL CREAM 15GM TUBE. TP SCH (08:48)
[2018-01-12] MEDS: INSULIN GLARGINE 300 UNITS/3 ML INSULN.PEN. SQ SCH (08:49)
[2018-01-12] MEDS ORDERED: LACTOBACILLUS RHAMNOSUS GG 1 CAPSULE. PO SCH (09:00)
[2018-01-12] MEDS ORDERED: MONTELUKAST SODIUM PO SCH (09:00)
[2018-01-12] MEDS ORDERED: FUROSEMIDE 20 MG TABLET PO SCH (09:00)
[2018-01-12] MEDS ORDERED: amLODIPine BESYLATE 10 MG TABLET PO SCH (09:00)
[2018-01-12] MEDS ORDERED: LISINOPRIL 20 MG TABLET PO SCH (09:00)
[2018-01-12] MEDS ORDERED: MIRABEGRON 25 MG TAB.ER.24H PO SCH (09:00)
[2018-01-12 11:20] VITALS: BP 93/62
[2018-01-12] MEDS ORDERED: VANCOMYCIN PER PHARMACY MC PRN (12:00)
[2018-01-12] MEDS ORDERED: VANCOMYCIN 125 MG/2.5 ML ORAL SOLUTION. PO SCH (13:00)
== END 2018-01-12 13:20 | disposition short-term general hospital (02) | DRG 871 ==
LOC: ER 03:54 → 1 SOUTH 08:57
PROVIDERS: ADMIT Family Medicine; ATTEND Family Medicine
DX: A41.9 Sepsis, unspecified organism (principal); N17.0 Acute kidney failure with tubular necrosis; G92 Toxic encephalopathy; E03.9 Hypothyroidism, unspecified; E11.42 Type 2 diabetes mellitus with diabetic polyneuropathy; E11.65 Type 2 diabetes mellitus with hyperglycemia; E78.00 Pure hypercholesterolemia, unspecified; E87.6 Hypokalemia; I12.9 Hypertensive chronic kidney disease with stage 1 through stage 4 chronic kidney disease, or unspecified chronic kidney disease; E11.22 Type 2 diabetes mellitus with diabetic chronic kidney disease; N18.3 Chronic kidney disease, stage 3 (moderate); K21.9 Gastro-esophageal reflux disease without esophagitis; K52.9 Noninfective gastroenteritis and colitis, unspecified; M19.90 Unspecified osteoarthritis, unspecified site; K56.41 Fecal impaction; M81.0 Age-related osteoporosis without current pathological fracture; Z79.4 Long term (current) use of insulin; Z83.3 Family history of diabetes mellitus; Z85.828 Personal history of other malignant neoplasm of skin; Z87.891 Personal history of nicotine dependence; Z88.2 Allergy status to sulfonamides; Z90.49 Acquired absence of other specified parts of digestive tract; Z98.51 Tubal ligation status; Z79.899 Other long term (current) drug therapy
CPT/HCPCS: 36415; 51702; 71045; 74174; 74176; 80048; 80053; 81001; 82010; 82803; 82947; 83605; 83690; 83735; 84443; 84484; 85007; 85025; 85610; 87040; 93005; 94640; 96361; 96365; 96366; 96375; 96376; 99406; G0480; J0696; J1815; J1956; J2405; J3010; J3480; J7040; J7613; J7626; Q9967; S0028; 99285-25; J7030

== ENCOUNTER 2018-02-16 07:44 | Emergency (ER) | payer MEDICARE, OTHER ==
[~2018-02-16] VITALS: Ht 157.5 cm; Wt 63.5 kg
[2018-02-16 07:51] VITALS: BP 128/62
--- NOTE | 2018-02-16 08:47 | RAD ---
EXAM: CT HEAD WITHOUT IV CONTRAST CLINICAL HISTORY: fell today, headache/dizziness with neck pain COMPARISON: None. TECHNIQUE: Routine CT of the head without contrast. Soft tissues and bone windows were reviewed. PQRS compliance statement - One or more of the following individualized dose reduction techniques were utilized for this study: 1. Automated exposure control 2. Adjustment of the mA and/or kV according to patient size 3. Use of iterative reconstruction technique FINDINGS: There is no evidence of hemorrhage, mass or extra-axial fluid collection. Rene-white differentiation is maintained with no evidence of edema. There are non-specific foci of hypodensity in the periventricular and subcortical white matter of the cerebral hemispheres. There is no mass effect or shift of the intracranial structures. The ventricles and cerebral sulci are prominent for the patients stated age consistent with generalized cerebral volume loss. The cerebellum and brainstem are unremarkable. The calvarium demonstrates no evidence of fracture or focal lesion. There is normal aeration of the visualized paranasal sinuses and mastoid air cells. The visualized portions of the orbits are normal. IMPRESSION: 1. No evidence for acute intracranial process. EXAM: CT CERVICAL SPINE WITHOUT IV CONTRAST CLINICAL HISTORY: fell today, headache/dizziness with neck pain COMPARISON: None available. TECHNIQUE: Helical CT of the cervical spine was performed. Axial, coronal and sagittal reformatted images were also performed. PQRS compliance statement - One or more of the following individualized dose reduction techniques were utilized for this study: 1. Automated exposure control 2. Adjustment of the mA and/or kV according to patient size 3. Use of iterative reconstruction technique FINDINGS: Vertebral body heights are preserved. No evidence of acute fracture. Mild multilevel disc height loss most prominent at C4-5, C5-6 and C7-T1 with associated calcifications. Small anterior endplate osteophytes are seen. Straightening of the normal cervical lordosis. Trace anterolisthesis of C3 on C4 measures 2 mm. C2-C3: No significant central canal stenosis or neural foraminal narrowing C3-C4: Trace anterolisthesis of C3 on C4 with small diffuse disc osteophyte complex causes mild central canal stenosis and no significant neural foraminal narrowing. C4-C5: Small posterior disc osteophyte complex causes no significant central canal stenosis and mild left neural foraminal narrowing. C5-C6: Small posterior disc osteophyte complex causes no significant central canal stenosis or neural foraminal narrowing. C6-C7: No significant central canal stenosis or neural foraminal narrowing. C7-T1: No significant central canal stenosis or neural foraminal narrowing Nonspecific sclerotic focus within the posterior elements of T2. If there is a known history of malignancy, metastasis may have similar appearance. Alternatively bone island or prior stress reaction may result in similar appearance. IMPRESSION: 1. No evidence of acute fracture. 2. Trace anterolisthesis of C3 on C4 is likely degenerative. 3. Multilevel degenerative changes as above 4. Nonspecific sclerotic focus within the posterior elements of T2. If there is a known history of malignancy, metastasis may have similar appearance. Alternatively bone island or prior stress reaction may result in similar appearance. Electronically signed by: Gopal Lizama MD (02/16/2018 8:44 AM) [facility]
--- NOTE | 2018-02-16 08:56 | RAD ---
Exam:Right ribs with PA chest Date: 02/16/2018 8:31 AM Comparison: No prior Indication: fell today, right rib pain Findings/ Impression: The heart is not enlarged. Mediastinal and hilar contours are normal. Patchy left lung base opacities, possibly atelectasis or developing consolidation. No pleural effusion or pneumothorax. AP, Oblique and Spot images of the right ribs are negative for acute displaced rib fracture. Negative focal pleural elevation. Symmetrical intercostal spacing. Of note, and acute non-displaced rib fracture can be radiographically occult on initial imaging. Large volume colonic stool content is partially profiled. Electronically signed by: Gopal Lizama MD (02/16/2018 8:53 AM) [facility]
[2018-02-16] MEDS ORDERED: MAGN296S9 PO (09:26)
--- NOTE | 2018-02-16 09:26 | PHYS DOC ---
Past History Past Medical History: Anxiety, Arthritis, Diabetes, High Cholesterol, Hyperthyroid Past Surgical History: Cholecystectomy Alcohol Use: None Drug Use: None Adult General Chief Complaint Chief Complaint: RIB PAIN HPI HPI Patient is a 82 year old female resident of detention who brought in by EMS because of a fall last night and pain in right hip. Patient states she has had right lateral and lower leg pain for the last 2or 3 days after she had physical therapy without any injury as a constant pain that getting force with movement without shortness of breath. Patient state last night she had a fall at the shower when she wanted to wear her gown and her pain getting worse. She denies focal neuro deficit, left-sided chest pain, fever and chills. Review of Systems Review of Systems Constitutional: Denies fever or chills [] Eyes: Denies change in visual acuity, redness, or eye pain [] HENT: Denies nasal congestion or sore throat [] Respiratory: Denies cough or shortness of breath [] Cardiovascular: No additional information not addressed in HPI [] GI: Denies abdominal pain, nausea, vomiting, bloody stools or diarrhea [] : Denies dysuria or hematuria [] Musculoskeletal: Denies back pain or joint pain [] Integument: Denies rash or skin lesions [] Neurologic: Denies headache, focal weakness or sensory changes [] Endocrine: Denies polyuria or polydipsia [] All other systems were reviewed and found to be within normal limits, except as documented in this note. Allergies Allergies Allergies Coded Allergies Type Severity Reaction Last Updated Verified Sulfa (Sulfonamide Antibiotics) Allergy Intermediate 06/30/13 Yes Physical Exam Physical Exam Constitutional: Well developed, well nourished, mild distress, non-toxic appearance. [] HENT: Normocephalic, atraumatic Eyes: PERRLA, EOMI, conjunctiva normal, no discharge. [] Neck: Normal range of motion, no tenderness, supple, no stridor. [] Cardiovascular:Heart rate regular rhythm, no murmur [] Lungs & Thorax: Bilateral breath sounds clear to auscultation, right side of chest without contusion or crepitation or tenderness Abdomen: Bowel sounds normal, soft, no tenderness, no masses, no pulsatile masses. [] Skin: Warm, dry, no erythema, no rash. [] Back: No tenderness, no CVA tenderness. [] Extremities: No tenderness, no cyanosis, no clubbing, ROM intact, no edema. [] Neurologic: Alert and oriented X 3, normal motor function, normal sensory function, no focal deficits noted. [] Psychologic: Affect normal, judgement normal, mood normal. [] Current Patient Data Vital Signs Vital Signs Date Time Temp Pulse Resp B/P (MAP) Pulse Ox O2 Delivery O2 Flow Rate FiO2 02/16/18 07:51 97.9 88 20 98 Room Air EKG EKG [] Radiology/Procedures Radiology/Procedures [address] [address] IMAGING REPORT Signed PATIENT: AMARIS ROSALES ACCOUNT: [id number] : 1935 LOCATION: ER AGE: 82 SEX: F EXAM STATUS: PRE ER ORD. PHYSICIAN: WASHINGTON RIVERS MD REASON: fall PROCEDURE: CT HEAD AND CERVICAL SPINE WO EXAM: CT HEAD WITHOUT IV CONTRAST CLINICAL HISTORY: fell today, headache/dizziness with neck pain COMPARISON: None. TECHNIQUE: Routine CT of the head without contrast. Soft tissues and bone windows were reviewed. PQRS compliance statement - One or more of the following individualized dose reduction techniques were utilized for this study: 1. Automated exposure control 2. Adjustment of the mA and/or kV according to patient size 3. Use of iterative reconstruction technique FINDINGS: There is no evidence of hemorrhage, mass or extra-axial fluid collection. Rene-white differentiation is maintained with no evidence of edema. There are non-specific foci of hypodensity in the periventricular and subcortical white matter of the cerebral hemispheres. There is no mass effect or shift of the intracranial structures. The ventricles and cerebral sulci are prominent for the patients stated age consistent with generalized cerebral volume loss. The cerebellum and brainstem are unremarkable. The calvarium demonstrates no evidence of fracture or focal lesion. There is normal aeration of the visualized paranasal sinuses and mastoid air cells. The visualized portions of the orbits are normal. IMPRESSION: 1. No evidence for acute intracranial process. EXAM: CT CERVICAL SPINE WITHOUT IV CONTRAST CLINICAL HISTORY: fell today, headache/dizziness with neck pain COMPARISON: None available. TECHNIQUE: Helical CT of the cervical spine was performed. Axial, coronal and sagittal reformatted images were also performed. PQRS compliance statement - One or more of the following individualized dose reduction techniques were utilized for this study: 1. Automated exposure control 2. Adjustment of the mA and/or kV according to patient size 3. Use of iterative reconstruction technique FINDINGS: Vertebral body heights are preserved. No evidence of acute fracture. Mild multilevel disc height loss most prominent at C4-5, C5-6 and C7-T1 with associated calcifications. Small anterior endplate osteophytes are seen. Straightening of the normal cervical lordosis. Trace anterolisthesis of C3 on C4 measures 2 mm. C2-C3: No significant central canal stenosis or neural foraminal narrowing C3-C4: Trace anterolisthesis of C3 on C4 with small diffuse disc osteophyte complex causes mild central canal stenosis and no significant neural foraminal narrowing. C4-C5: Small posterior disc osteophyte complex causes no significant central canal stenosis and mild left neural foraminal narrowing. C5-C6: Small posterior disc osteophyte complex causes no significant central canal stenosis or neural foraminal narrowing. C6-C7: No significant central canal stenosis or neural foraminal narrowing. C7-T1: No significant central canal stenosis or neural foraminal narrowing Nonspecific sclerotic focus within the posterior elements of T2. If there is a known history of malignancy, metastasis may have similar appearance. Alternatively bone island or prior stress reaction may result in similar appearance. IMPRESSION: 1. No evidence of acute fracture. 2. Trace anterolisthesis of C3 on C4 is likely degenerative. 3. Multilevel degenerative changes as above 4. Nonspecific sclerotic focus within the posterior elements of T2. If there is a known history of malignancy, metastasis may have similar appearance. Alternatively bone island or prior stress reaction may result in similar appearance. Electronically signed by: Gopal George MD (02/16/2018 8:44 AM) [facility] DICTATED AND SIGNED BY: GOPAL GEORGE MD DATE: 02/16/18 0834 CC: CYNTHIA GONZALEZ MD; WASHINGTON RIVERS MD ~ [address] [address] IMAGING REPORT Signed PATIENT: AMARIS ROSALES ACCOUNT: [id number] : 1935 LOCATION: ER AGE: 82 SEX: F EXAM STATUS: PRE ER ORD. PHYSICIAN: WASHINGTON RIVERS MD REASON: fall PROCEDURE: RIBS RIGHT AND PA CHEST Exam:Right ribs with PA chest Date: 02/16/2018 8:31 AM Comparison: No prior Indication: fell today, right rib pain Findings/ Impression: The heart is not enlarged. Mediastinal and hilar contours are normal. Patchy left lung base opacities, possibly atelectasis or developing consolidation. No pleural effusion or pneumothorax. AP, Oblique and Spot images of the right ribs are negative for acute displaced rib fracture. Negative focal pleural elevation. Symmetrical intercostal spacing. Of note, and acute non-displaced rib fracture can be radiographically occult on initial imaging. Large volume colonic stool content is partially profiled. Electronically signed by: Gopal George MD (02/16/2018 8:53 AM) [facility] DICTATED AND SIGNED BY: GOPAL GEORGE MD DATE: 02/16/18 0851 CC: CYNTHIA GONZALEZ MD; WASHINGTON RIVERS MD ~ Course & Med Decision Making Course & Med Decision Making Pertinent Imaging studies reviewed. (See chart for details) Evaluation of patient in ER showed 82-year-old female patient on Heparin who had a fall at detention last night comparing of right-sided chest pain for 2 or 3 days. Patient had unremarkable physical exam and x-ray of chest and keeps and CT of head and didn't want to have pain medication. Patient instructed to follow-up with her primary care physician regarding chest wall musculoskeletal pain. X-ray of the chest showing large amount of loose stool including and prescription for magnesium citrate was given. Dragon Disclaimer Dragon Disclaimer This electronic medical record was generated, in whole or in part, using a voice recognition dictation system. Departure Departure: Impression: Primary Impression: Musculoskeletal chest pain Additional Impressions: Fall at detention Constipation Disposition: ER [facility] (at 0922) Condition: STABLE Referrals: CYNTHIA GNOZALEZ MD (PCP) Patient Instructions: Chest Wall Pain, Constipation, Adult, Fall Prevention in Hospitals Additional Instructions: Follow-up with your primary care physician in 1-2 days regarding constipation Return to ER if not getting better Scripts Magnesium Citrate (MAGNESIUM CITRATE) 296 Ml Solution 296 ML PO ONCE for constipation, #296 ML Prov: WASHINGTON RIVERS MD 02/16/18 Problem Qualifiers WASHINGTON RIVERS MD Feb 16, 2018 09:26
== END 2018-02-16 09:37 | disposition home or self-care (01) ==
LOC: ER 07:44
DX: R07.89 Other chest pain (principal); K59.00 Constipation, unspecified; M25.551 Pain in right hip; M79.661 Pain in right lower leg; R51 Headache; M54.2 Cervicalgia; G89.11 Acute pain due to trauma; F41.9 Anxiety disorder, unspecified; M19.90 Unspecified osteoarthritis, unspecified site; E11.9 Type 2 diabetes mellitus without complications; E78.00 Pure hypercholesterolemia, unspecified; E03.9 Hypothyroidism, unspecified; Z88.2 Allergy status to sulfonamides; W18.2XXA Fall in (into) shower or empty bathtub, initial encounter; Y93.89 Activity, other specified; Y92.128 Other place in nursing home as the place of occurrence of the external cause; Y99.8 Other external cause status
CPT/HCPCS: 70450; 71101; 72125; 99284; 99285

== ENCOUNTER 2018-07-16 19:42 | Emergency (ER) | payer MEDICARE, OTHER ==
[~2018-07-16] VITALS: Ht 309.9 cm; Wt 58.0 kg
[~2018-07-16 19:42] MED LIST changes: +ALBU2.5V8 INH; -ALBU8.5H8 INH; -HYDR-2762 PO; +HYDR-2765 PO; +MAGN296S9 PO
--- NOTE | 2018-07-16 19:52 | PHYS DOC ---
Past History Past Medical History: Anxiety, Arthritis, Diabetes, High Cholesterol, Hyperthyroid Past Surgical History: Cholecystectomy Alcohol Use: None Drug Use: None Adult General Chief Complaint Chief Complaint: RIB PAIN [facility] HPI Patient is an 83-year-old female who presents with complaint of right rib pain after falling about a week ago onto her right side. Patient states that she was on a rug. She states that initially the pain was not really bad but she states that it has progressively been getting worse. She states the pain is especially worsened when she puts her bra on. She denies any shortness of breath. She rates the pain at a 9-1/2 out of 10. She denies any fever, nausea or vomiting. She describes the pain as sharp and stabbing in nature. Review of Systems Review of Systems Constitutional: Denies fever or chills [] Respiratory: Denies cough or shortness of breath. Positive right-sided chest wall/rib pain. [] Cardiovascular: No additional information not addressed in HPI [] GI: Denies abdominal pain, nausea, vomiting or diarrhea [] Musculoskeletal: Denies back pain or joint pain [] Integument: Denies rash or skin lesions [] Allergies Allergies Allergies Coded Allergies Type Severity Reaction Last Updated Verified Sulfa (Sulfonamide Antibiotics) Allergy Intermediate 06/30/13 Yes Physical Exam Physical Exam Constitutional: Well developed, well nourished, no acute distress, non-toxic appearance. [] Neck: Normal range of motion, no tenderness, supple, no stridor. [] Cardiovascular:Heart rate regular rhythm, no murmur [] Lungs & Thorax: Bilateral breath sounds clear to auscultation. There is reproducible tenderness to palpation along the right lateral mid to lower rib margin. [] Abdomen: Bowel sounds normal, soft, no tenderness. [] Skin: Warm, dry, no erythema, no rash. [] EKG EKG [] Radiology/Procedures Radiology/Procedures [] Impressions: Right rib series demonstrates no rib fractures. Course & Med Decision Making Course & Med Decision Making Pertinent Labs and Imaging studies reviewed. (See chart for details) [] Dragon Disclaimer Dragon Disclaimer This electronic medical record was generated, in whole or in part, using a voice recognition dictation system. Departure Departure: Impression: Primary Impression: Contusion of rib on right side Disposition: 01 HOME, SELF-CARE Condition: STABLE Referrals: CYNTHIA GONZALEZ MD (PCP) Patient Instructions: Rib Contusion Scripts Tramadol Hcl (TRAMADOL HCL) 50 Mg Tablet 50 MG PO PRN Q6HRS PRN for PAIN, #12 TAB Prov: CLAUDY FARR Jr. DO 07/16/18 Problem Qualifiers Primary Impression: Contusion of rib on right side Encounter type: initial encounter Qualified Codes: S20.211A - Contusion of right front wall of thorax, initial encounter CLAUDY FARR Jr. DO Jul 16, 2018 19:52
[2018-07-16 19:53] VITALS: BP 150/80
[2018-07-16] MEDS ORDERED: TRAM50TA PO (20:20)
[2018-07-16] MEDS ORDERED: ONDANSETRON ODT 4 MG TAB.RAPDIS PO ONE (20:30)
[2018-07-16] MEDS ORDERED: ONDA4TAB7 PO (20:33)
[2018-07-16] MEDS ORDERED: LIDO1ADH TP (20:33)
[2018-07-16] MEDS ORDERED: ONDANSETRON ODT 4 MG TAB.RAPDIS ONE (20:39)
--- NOTE | 2018-07-17 08:30 | RAD ---
Three-view right rib series and PA view chest x-ray. COMPARISON: February 16, 2018. Clinical indications: Fell one week ago. Right rib pain. FINDINGS: No acute right rib fracture is evident. Chest x-ray demonstrates no acute lung infiltrate or pleural effusion or pulmonary edema or pneumothorax. The heart size and pulmonary vasculature and mediastinum and both alvarez are stable. IMPRESSION: No acute right rib fracture. No acute lung infiltrate. Electronically signed by: Wali Kelley MD (07/17/2018 8:27 AM) [facility]
== END 2018-07-16 21:00 | disposition home or self-care (01) ==
LOC: ER 19:42
DX: S20.211A Contusion of right front wall of thorax, initial encounter (principal); F41.9 Anxiety disorder, unspecified; M19.90 Unspecified osteoarthritis, unspecified site; E11.9 Type 2 diabetes mellitus without complications; E78.00 Pure hypercholesterolemia, unspecified; E03.9 Hypothyroidism, unspecified; Z88.2 Allergy status to sulfonamides; W18.39XA Other fall on same level, initial encounter; Y93.89 Activity, other specified; Y92.89 Other specified places as the place of occurrence of the external cause; Y99.8 Other external cause status
CPT/HCPCS: 71101; 96372; 99284; J3010; Q0162

== ENCOUNTER 2019-05-04 17:40 | Inpatient (IN) | payer MEDICARE, OTHER ==
[~2019-05-04] VITALS: Ht 152.4 cm; Wt 62.1 kg
[~2019-05-04 17:40] MED LIST changes: +LIDO1ADH TP; +MAGN296S68 PO; -MAGN296S9 PO; +MONT10TA80 PO; -MONT10TA9 PO; +ONDA4TAB7 PO
--- NOTE | 2019-05-04 17:47 | PHYS DOC ---
Past History Past Medical History: Anxiety, Arthritis, Dementia, Diabetes, High Cholesterol, Hyperthyroid, Other Past Surgical History: Cholecystectomy, Colectomy Alcohol Use: None Drug Use: None Adult General Chief Complaint Chief Complaint: ALTERED MENTAL STATUS- Mumbles to noxious stimuli and procedures- HPI HPI Patient is a 83 year old female who presents with mental status change. Pt. sleeping in chair all day. Did not respond tonight when son attempted to wake her up to eat. Patient was normal at 3:00 PM yesterday (1500). Daughter came by to check on her and make sure she took her insulin as directed. Patient is same chair as she stated one daughter last checked on her. Patient has been somewhat noncompliant with her insulin usage recently she normally takes Lantus 20 mg a.m. and p.m. and NovoLog sliding scale before meals. Patient has not had any travel or specific ill contacts. Patient did undergo a colon section by Dr. Espinal approximately year ago after perforated colon and a napkin ring obstruction. Patient normally follows with Dr. Gonzalez. Patient does have k nown history of diabetes, urinary retention, chronic pain, constipation, hypertension. On arrival patient sent to CT and no obvious stroke or bleed appreciated but significant atrophy. Patient does withdrawal to noxious stimuli. Feet are somewhat down turn. She does have arthritic scars. Daughter and family states she is usually very verbally responsive. Daughter did state that her mother recently has been giving her regular insulin without checking her blood sugar. Patient's primary orthotist prosthetist is her daughter but also has a son that helps with care of his mother. Patient generally administers her own medications. Review of Systems Review of Systems Unable to complete abuse systems because of patient's mental status Family History Family History Diabetes hypertension Current Medications Current Medications See nursing for home meds Allergies Allergies Allergies Coded Allergies Type Severity Reaction Last Updated Verified Sulfa (Sulfonamide Antibiotics) Allergy Intermediate 06/30/13 Yes Physical Exam Physical Exam Constitutional: no acute distress, non-toxic appearance. [] HENT: Normocephalic, atraumatic, bilateral external ears normal, oropharynx dry, no oral exudates, nose normal. []Does have gag. Eyes: PERRLA, EOMI, conjunctiva normal, no discharge. Arcus Neck: Normal range of motion, no tenderness, supple, no stridor. [] Cardiovascular: Tachycardia Heart rate regular rhythm, no murmur []PMI to the left Lungs & Thorax: Bilateral breath sounds equal at apex on auscultation []. Does have sat at 95% on room air. Abdomen: Bowel sounds normal, soft, no tenderness, no masses, no pulsatile masses. [] Mild distention. Large midline scar. Colostomy on left. Skin: Warm, dry, no erythema, no rash. []Poor turgor Back: No tenderness, no CVA tenderness. [] Extremities: No tenderness, no cyanosis, no clubbing,, no edema. [] Down toward turn feet. Follows with DrMireya powell Neurologic: []DTRs 1-2 patella and brachial. Doesn't withdraw to noxious stimuli does cross protective protect with noxious stimuli Psychologic: Affect at, normal response to noxious stimuli EKG EKG My interpretation EKG shows a sinus tachycardia at 101 bpm.. No findings acute STEMI of contralateral changes[] Radiology/Procedures Radiology/Procedures [] Signed PATIENT: AMARIS ROSALES ACCOUNT: [id number] : 1935 LOCATION: ER AGE: 83 SEX: F EXAM STATUS: REG ER ORD. PHYSICIAN: FIORELLA ARMENDARIZ MD REASON: UNRESPONSIVENESS PROCEDURE: CT CODE STROKE HEAD WO EXAM: CT Head without IV contrast CLINICAL HISTORY: Unresponsive COMPARISON: None. TECHNIQUE: Routine CT of the head without contrast. Soft tissues and bone windows were reviewed. PQRS compliance statement - One or more of the following individualized dose reduction techniques were utilized for this study: 1. Automated exposure control 2. Adjustment of the mA and/or kV according to patient size 3. Use of iterative reconstruction technique FINDINGS: There is no evidence of hemorrhage, mass or extra-axial fluid collection. Rene-white differentiation is maintained with no evidence of edema. Diffuse periventricular, subcortical and deep white matter hypoattenuation likely changes of chronic cholecystitis. There is no mass effect or shift of the intracranial structures. There is prominence of the ventricles and sulci bilaterally consistent with generalized atrophy. The cerebellum and brainstem are unremarkable. The calvarium demonstrates no evidence of fracture or focal lesion. Changes of right lamina papyracea deformity, likely old fracture. There is normal aeration of the visualized paranasal sinuses and mastoid air cells. The visualized portions of the orbits are normal. IMPRESSION: 1. No evidence for acute intracranial hemorrhage. 2. White matter changes likely chronic small vessel disease. 3. There is prominence of the ventricles and sulci bilaterally consistent with generalized atrophy. Findings discussed with FIORELLA ARMENDARIZ at 05/04/2019 5:56 PM. FOR INTERNAL CODING PURPOSES RESULT CODE: (C) Electronically signed by: Gopal George MD (05/04/2019 5:58 PM) [id number] DICTATED AND SIGNED BY: GOPAL GEORGE MD DATE: 05/04/19 1758 CC: CYNTHIA GONZALEZ MD; FIORELLA ARMENDARIZ MD ~ Course & Med Decision Making Course & Med Decision Making Pertinent Labs and Imaging studies reviewed. (See chart for details). Patient to be admitted to Dr. Gonzalez for further evaluation and treatment. We will obtain neuro consult.. May be able to complete CT of chest once patient is adequately hydrated. Pt. mental status did improve significantly prior to transfer to [facility], after hydration. Impression- 1. Mental status change (last normal at 1500 hrs. yesterday to 05/03 2019) 2. Hx DM - 177 3. Hx. HTN 4. Dehydration- 5. Elevated D-dimer 1.82 6. Hypernatremia 146 7. Mild Elevation Lactic Acid -2,1 8. Mild Elevation AST 73, Alk Phos 296 9. Elevated CK 3086 10. Elevated BUN 27,Creat 1.4, 7. [] Dragon Disclaimer Dragon Disclaimer This electronic medical record was generated, in whole or in part, using a voice recognition dictation system. Departure Departure: Disposition: 01 HOME/RESIDENCE PRIOR TO ADM Condition: STABLE Referrals: CYNTHIA GONZALEZ MD (PCP) Dragon Disclaimer This chart was dictated in whole or in part using Voice Recognition software in a busy, high-work load, and often noisy Emergency Department environment. It may contain unintended and wholly unrecognized errors or omissions. FIORELLA ARMENDARIZ MD May 04, 2019 17:46
[2019-05-04] MEDS ORDERED: IV RINGERS SOLUTION,LACTATED 1,000 ML IV SCH (17:55)
--- NOTE | 2019-05-04 18:01 | RAD ---
EXAM: CT Head without IV contrast CLINICAL HISTORY: Unresponsive COMPARISON: None. TECHNIQUE: Routine CT of the head without contrast. Soft tissues and bone windows were reviewed. PQRS compliance statement - One or more of the following individualized dose reduction techniques were utilized for this study: 1. Automated exposure control 2. Adjustment of the mA and/or kV according to patient size 3. Use of iterative reconstruction technique FINDINGS: There is no evidence of hemorrhage, mass or extra-axial fluid collection. Rene-white differentiation is maintained with no evidence of edema. Diffuse periventricular, subcortical and deep white matter hypoattenuation likely changes of chronic cholecystitis. There is no mass effect or shift of the intracranial structures. There is prominence of the ventricles and sulci bilaterally consistent with generalized atrophy. The cerebellum and brainstem are unremarkable. The calvarium demonstrates no evidence of fracture or focal lesion. Changes of right lamina papyracea deformity, likely old fracture. There is normal aeration of the visualized paranasal sinuses and mastoid air cells. The visualized portions of the orbits are normal. IMPRESSION: 1. No evidence for acute intracranial hemorrhage. 2. White matter changes likely chronic small vessel disease. 3. There is prominence of the ventricles and sulci bilaterally consistent with generalized atrophy. Findings discussed with FIORELLA ARMENDARIZ at 05/04/2019 5:56 PM. FOR INTERNAL CODING PURPOSES RESULT CODE: (C) Electronically signed by: Gopal Lizama MD (05/04/2019 5:58 PM) [id number]
[2019-05-04 18:25] LABS: BASO % 0 % (0-3); EOS % 0 % (0-3); HEMATOCRIT 39.2 % (36.0-47.0); HEMOGLOBIN 12.8 g/dL (12.0-15.5); LYMPH # 0.6 x10^3/uL (1.0-4.8); LYMPH % 6 % (24-48); MEAN CORPUSCULAR HEMOGLOBIN 30 pg (25-35); MEAN CORPUSCULAR HGB CONC 33 g/dL (31-37); MEAN CORPUSCULAR VOLUME 90 fL (79-100); MONO # 0.5 x10^3/uL (0.0-1.1); MONO % 5 % (0-9); NEUT # 8.6 x10^3uL (1.8-7.7); NEUT % 89 % (31-73); PLATELET COUNT 180 x10^3/uL (140-400); RED BLOOD COUNT 4.34 x10^6/uL (3.50-5.40); WHITE BLOOD COUNT 9.7 x10^3/uL (4.0-11.0)
[2019-05-04 18:27] LABS: BGAS PH 7.37 (7.35-7.45)
--- NOTE | 2019-05-04 18:28 | EKG ---
[address] [address] Test Date: 2019-05-04 Test Time: 17:57:50 Pat Name: AMARIS ROSALES Department: Room: Gender: F Warp Spooler: : 1935 Requested By: FIORELLA ARMENDARIZ Order Number: [id number] Reading MD: Measurements Intervals [place]ame Rate: 101 P: 11 SD: 156 QRS: 19 QRSD: 70 T: 62 QT: 328 QTc: 426 Interpretive Statements SINUS TACHYCARDIA OTHERWISE NORMAL ECG RI6.01 No previous ECG available for comparison
[2019-05-04] MEDS ORDERED: ASPIRIN RECTAL 300 MG SUPP. PR ONE (18:30)
[2019-05-04 18:35] LABS: CALCIUM 9.7 mg/dL (8.5-10.1); CREATININE 1.4 mg/dL (0.6-1.0); GFR 43.5; POTASSIUM 4.7 mmol/L (3.5-5.1)
[2019-05-04 18:37] LABS: BARBITURATES NEG (NEG); BENZODIAZEPINES NEG (NEG); CANNABINOIDS NEG (NEG); COCAINE NEG (NEG); METHADONE NEG (NEG); OPIATES NEG (NEG); PHENCYCLIDINE NEG (NEG)
[2019-05-04 18:38] LABS: AMPHETAMINE/METHAMPHETAMINE NEG (NEG)
[2019-05-04 18:50] LABS: BILIRUBIN,URINE NEG (NEG); CLARITY,URINE HAZY; COLOR,URINE YELLOW; GLUCOSE,URINE NEG (NEG); NITRITE,URINE NEG (NEG); UROBILINOGEN,URINE 0.2 mg/dL (0.2 mg/dL)
[2019-05-04 18:51] LABS: AMORPHOUS SEDIMENT,UR PRESENT /HPF; BACTERIA,URINE 0 /HPF (0-FEW); RBC,URINE RARE /HPF (0-2); SQUAMOUS EPITHELIAL CELL,UR OCC /LPF; WBC,URINE 0 /HPF (0-4)
[2019-05-04 18:57] LABS: ALBUMIN 3.5 g/dL (3.4-5.0); DIRECT BILIRUBIN 0.2 mg/dL (0.0-0.2); MAGNESIUM 1.9 mg/dL (1.8-2.4); TOTAL BILIRUBIN 0.4 mg/dL (0.2-1.0); TOTAL PROTEIN 6.9 g/dL (6.4-8.2)
--- NOTE | 2019-05-04 19:22 | RAD ---
AP portable chest radiograph 05/04/2019 Clinical History: Code stroke. An AP erect portable digital radiograph of the chest was obtained. Comparison study is dated 07/16/2018. The cardiac silhouette is mildly enlarged. The thoracic aorta is mildly tortuous. No acute pulmonary infiltrate is seen. No pleural effusion or pneumothorax is noted. There is diffuse osteopenia of the visualized bony structures. Degenerative changes are seen involving the thoracic spine and both shoulders. Impression: No acute abnormality is seen. Electronically signed by: Quinn Russell MD (05/04/2019 7:19 PM) [id number]
[2019-05-04 19:35] LABS: SEDIMENTATION RATE 35 (0-25)
[2019-05-04] MEDS ORDERED: ACETAMINOPHEN 325 MG TABLET PO PRN (21:30)
[2019-05-04] MEDS ORDERED: ONDANSETRON PF 4 MG/2 ML VIAL. IV PRN (21:30)
[2019-05-04] MEDS ORDERED: IV RINGERS SOLUTION,LACTATED 1,000 ML IV ONE ×2 (21:30)
[2019-05-04] MEDS ORDERED: ENOXAPARIN ** NOTE DOSE ** SYRINGE SQ ONE (21:30)
[2019-05-04 21:36] LABS: INFLUENZA A PATIENT NEGATIVE (NEGATIVE); INFLUENZA B PATIENT NEGATIVE (NEGATIVE)
[2019-05-04] MEDS ORDERED: DESO15CR8 TP (22:55)
[2019-05-04] MEDS ORDERED: TAMS0.4C97 PO (22:55)
[2019-05-04] MEDS ORDERED: KETO5DRO89 OU (22:55)
[2019-05-04] MEDS ORDERED: POTA20TA4 PO (22:55)
[2019-05-04] MEDS ORDERED: ATOR20TA58 PO (22:55)
[2019-05-04] MEDS ORDERED: GABA-586 PO (22:55)
--- NOTE | 2019-05-04 23:13 | RAD ---
Procedure: Bilateral Carotid Duplex examination using B-mode, color flow and spectral Doppler was performed. Indication: Mental status changes, dizziness, lightheadedness Findings: Within the right carotid arterial system, there is minimal mural thickening and irregularity without significant stenosis.. The Doppler velocities and waveforms are normal with a peak systolic velocity of 50 cm/s in the distal internal carotid artery. The ICA/CCA ratio is 0.7. The common carotid artery has a peak systolic velocity of 73 cm/sec. The external carotid artery has a peak systolic velocity of 67 cm/sec. There is antegrade flow in the right vertebral artery. Within the left carotid arterial system, there is minimal atheromatous thickening without significant stenosis.. The Doppler velocities and waveforms are normal with a peak systolic velocity of 77 cm/s in the distal internal carotid artery. The ICA/CCA ratio is 1.The common carotid artery has a peak systolic velocity of 84 cm/sec. The external carotid artery has a peak systolic velocity of 106 cm/sec. There is antegrade flow in the left vertebral artery. Impression: <50 percent ICA stenosis bilaterally. Degree of stenosis (%) ? normal: o ICA PSV is <125 cm/sec and no plaque or intimal thickening is visible sonographically o additional criteria include ICA/CCA PSV ratio <2.0 and ICA EDV <40 cm/sec ? <50% ICA stenosis: o ICA PSV is <125 cm/sec and plaque or intimal thickening is visible sonographically o additional criteria include ICA/CCA PSV ratio <2.0 and ICA EDV <40 cm/sec ? 50-69% ICA stenosis: o ICA PSV is 125-230 cm/sec and plaque is visible sonographically o additional criteria include ICA/CCA PSV ratio of 2.0-4.0 and ICA EDV of 40-100 cm/sec ? ?70% ICA stenosis but less than near occlusion: o ICA PSV is >230 cm/sec and visible plaque and luminal narrowing are seen at mccray-scale and colour Doppler ultrasound (the higher the Doppler parameters lie above the threshold of 230 cm/sec, the greater the likelihood of severe disease) o additional criteria include ICA/CCA PSV ratio >4 and ICA EDV >100 cm/sec ? near occlusion of the ICA: o velocity parameters may not apply, since velocities may be high, low, or undetectable o diagnosis is established primarily by demonstrating a markedly narrowed lumen at colour or power Doppler ultrasound ? total occlusion of the ICA: o no detectable patent lumen at mccray-scale US and no flow with spectral, power, and colour Doppler ultrasound o there may be compensatory increased velocity in the contralateral carotid [PSV = peak systolic velocity;?EDV = end diastolic velocity; ICA = internal carotid artery; CCA = common carotid artery] Electronically signed by: Gopal Lizama MD (05/04/2019 11:10 PM) [id number]
[2019-05-04 23:56] VITALS: BP 149/65
[2019-05-05] VITALS (25 sets, daily range): BP systolic 121–162; BP diastolic 54–94
[2019-05-05] MEDS ORDERED: ASCO500C PO (00:45)
[2019-05-05] MEDS ORDERED: INSU100I17 SQ (00:45)
[2019-05-05] MEDS ORDERED: ACET325T9 PO (00:45)
[2019-05-05] MEDS ORDERED: LACT1CAP2 PO (00:45)
[2019-05-05] MEDS ORDERED: CALC-36 PO (00:45)
[2019-05-05] MEDS ORDERED: INSU100I13 SQ (00:57)
[2019-05-05] MEDS: MORPHINE SULFATE 2 MG/ML DISP.SYRIN. IV PRN ×2 (03:03→20:32)
[2019-05-05] MEDS: IV RINGERS SOLUTION,LACTATED 1,000 ML IV SCH ×3 (05:00→23:00)
--- NOTE | 2019-05-05 06:06 | RAD ---
Bilateral Lower Extremity Venous Doppler Ultrasound History: Bilateral lower extremity swelling Comparison: None Procedure: Color flow, duplex, spectral analysis and 2D images are obtained with and without compression in the area of the common femoral vein, superficial femoral vein - femoral vein junction, main femoral vein (superficial femoral vein) and popliteal vein. Veins of the proximal calf are also imaged. Findings: There is normal duplex flow, color flow and compressibility of all visualized vein segments. No evidence of deep venous thrombus is present. The study is technically challenging due to the patient not cooperating. Impression: No evidence of DVT. Electronically signed by: Der Dalton III, MD (05/05/2019 6:03 AM) [id number]
[2019-05-05 06:46] LABS: BASO % 0 % (0-3); EOS % 0 % (0-3); HEMATOCRIT 34.6 % (36.0-47.0); HEMOGLOBIN 11.2 g/dL (12.0-15.5); LYMPH # 1.2 x10^3/uL (1.0-4.8); LYMPH % 12 % (24-48); MEAN CORPUSCULAR HEMOGLOBIN 29 pg (25-35); MEAN CORPUSCULAR HGB CONC 32 g/dL (31-37); MEAN CORPUSCULAR VOLUME 90 fL (79-100); MONO # 0.8 x10^3/uL (0.0-1.1); MONO % 8 % (0-9); NEUT % 79 % (31-73); PLATELET COUNT 165 x10^3/uL (140-400); RED BLOOD COUNT 3.83 x10^6/uL (3.50-5.40); RED CELL DISTRIBUTION WIDTH 14.2 % (11.5-14.5); WHITE BLOOD COUNT 10.1 x10^3/uL (4.0-11.0)
[2019-05-05 07:04] LABS: CALCIUM 8.8 mg/dL (8.5-10.1); GFR 64.1; POTASSIUM 3.7 mmol/L (3.5-5.1)
[2019-05-05] MEDS: IPRATRPIUM/ALBUTEROL 0.5/2.5MG 3 ML NEBU. NEB SCH ×3 (08:00→15:07)
[2019-05-05] MEDS ORDERED: DEXTROSE 50% 25 GM / 50ML DISP.SYRIN. IV PRN (08:45)
[2019-05-05] MEDS ORDERED: FLU VAX QS 2019-20 (36MOS+)/PF 0.5 ML SYRINGE. VAX IM ONE (09:00)
[2019-05-05] MEDS: INSULIN LISPRO 300 UNITS/3 ML VIAL. SQ SCH ×2 (12:00→17:00)
[2019-05-05] MEDS: ENOXAPARIN ** NOTE DOSE ** SYRINGE SQ SCH (12:46)
--- NOTE | 2019-05-05 16:12 | RAD ---
CT ABDOMEN PELVIS WO CONTRAST History: Abdominal pain. Concern for bowel obstruction. Technique: Noncontrast examination of the abdomen and pelvis. Coronal and sagittal reconstructions were performed. Exposure: One or more of the following individualized dose reduction techniques were utilized for this examination: 1. Automated exposure control 2. Adjustment of the mA and/or kV according to patient size 3. Use of iterative reconstruction technique. Comparison: CT March 07, 2018 Findings: Lower chest: Bilateral lower lobe linear atelectasis. Abdomen and pelvis: The liver, spleen, adrenal glands and pancreas are unremarkable. Prior cholecystectomy. Unremarkable noncontrast appearance of the kidneys. No hydronephrosis. Decompressed urinary bladder with catheter in place. Postoperative changes left sided colectomy with right lower quadrant colostomy. Appendix not well identified with lack of IV and oral contrast. No pneumoperitoneum. No pneumatosis. No evidence of small bowel obstruction. No ascites. Calcified uterine fibroids. Bones: Grade 1 anterolisthesis L4 on L5. Multilevel lumbar spondylosis most prominent L4-L5 and L5-S1. Impression: 1. No acute abdominal or pelvic pathology. No evidence of bowel obstruction. 2. Postop changes left hemicolectomy with right lower quadrant colostomy. Electronically signed by: Ba Real DO (05/05/2019 4:09 PM) [id number]
[2019-05-05] MEDS ORDERED: ACETAMINOPHEN 325 MG TABLET PO PRN (18:30)
--- NOTE | 2019-05-05 19:01 | HP ---
ADMIT DATE: 05/04/2019 HISTORY OF PRESENT ILLNESS: Admitted through the Emergency Room, apparently found at home unconscious, pretty much change in mental status. She had been in her chair for several hours, apparently was not noticed until late in the afternoon by her daughter who came by to check on her. The patient was completely out of it in terms of her mental status. She was unable to be aroused although she was breathing fine . She did undergo a colon resection by Dr. Graham a year ago for a napkin ring obstruction. In any case, the patient was admitted, appeared to be in some form of an encephalopathy where she had marked change in mental status. The patient was admitted to the ICU for further evaluation. PAST MEDICAL HISTORY: Peripheral neuropathy, hypercholesterolemia, COPD, colitis, abdominal surgery, laparoscopic cholecystostomy, ostomy, tubal ligation, abdominal uterine bleeding, arthritis, osteoarthritis, osteoporosis, diabetes, hypothyroidism, history of tobacco use, history of skin cancer, influenza, pneumococcal up-to-date. FAMILY HISTORY: Mother of lung cancer. Sister with breast cancer. Father diabetes. ALLERGIES: SULFUR. RECONCILIATION OF HER HOME MEDICATIONS: She is a diabetic and apparently had been fairly noncompliant for some time on her medications, but the medication list had been reviewed and set into play. Otherwise, the patient allergies as noted to SULFUR. SOCIAL HISTORY: The patient had about a 26-bnzs-vomv history of smoking. No recent alcohol use. Lives at home. Does have a son that lives with her, but apparently there is some social situations there. REVIEW OF SYSTEMS: The patient is unable to give any type of review of systems. PHYSICAL EXAMINATION: VITAL SIGNS: Blood pressure 155/56, respiratory rate 20, pulse 64. She is afebrile completely. HEENT: The patient's head was atraumatic, normocephalic. Eyes: PERRLA without jaundice. The mouth and throat were normal. NECK: Supple, without JVD or thyromegaly. LUNGS: Diminished throughout, poor movement of air, but clear. CARDIOVASCULAR: Regular sinus rhythm, S1, S2, without murmur, rub, thrill, or extra heart sounds. ABDOMEN: The patient's abdomen is soft, nontender, no rebound or guarding. Positive bowel sounds, no hepatosplenomegaly. The patient's colostomy os intact, although there is some extrusion of the bowel itself. EXTREMITIES: No clubbing, cyanosis or edema. NEUROLOGIC: The patient was basically unalert. She is unarousable at times, although her pupils are reactive to light and accommodation. The patient otherwise is unable to follow commands or barely open her eyes at this time. The patient has been consulted with Neurology. LABORATORY DATA: Look basically stable as her blood count was basically all within normal limits. Her blood gases were stable. Chemistries showed a low blood sugar of 59 and an elevated lactic acid of 2.1 and a creatinine kinase of 3000. TSH was on the low side. Sodium on the high side. It appeared that the patient may have been somewhat dehydrated and hypoglycemic. IMPRESSION: Diabetic metabolic encephalopathy, dehydration, change in mental status, type 2 diabetes, poorly controlled. PLAN: The patient will be continued to be monitored in the ICU and continue to be rehydrated and make further evaluation on her as indicated. CYNTHIA GONZALEZ MD DR: AL/princess JOB#: [id number] / [id number]
[2019-05-05] MEDS ORDERED: IPRATRPIUM/ALBUTEROL 0.5/2.5MG 3 ML NEBU. NEB PRN (20:30)
[2019-05-05] MEDS: BETAMETHASONE DP AUGMENTED 0.05% 15gm CREAM TUBE. TP SCH (20:32)
[2019-05-05] MEDS: KETOTIFEN FUMARATE 0.025% OPHT SOLUTION BOTTLE. OU SCH (20:32)
[2019-05-05] MEDS: INSULIN GLARGINE SYRINGE. SQ SCH (21:00)
[2019-05-05] MEDS: GABAPENTIN 300 MG CAPSULE. PO SCH (21:00)
[2019-05-05] MEDS: ATORVASTATIN CALCIUM 20 MG TABLET PO SCH (21:00)
[2019-05-05] MEDS: TAMSULOSIN 0.4 MG CAP.ER.24H. PO SCH (21:00)
[2019-05-05] MEDS: LACTOBACILLUS RHAMNOSUS GG 1 CAPSULE. PO SCH (21:00)
[2019-05-05 23:07] LABS: HEMOGLOBIN A1C 9.2 % (4.8-5.6)
[2019-05-06] VITALS (24 sets, daily range): BP systolic 116–161; BP diastolic 59–81
[2019-05-06] MEDS: IV RINGERS SOLUTION,LACTATED 1,000 ML IV SCH (05:25)
[2019-05-06] MEDS: LEVOTHYROXINE 125 MCG TABLET PO SCH (05:28)
[2019-05-06 06:21] LABS: BASO % 0 % (0-3); EOS % 0 % (0-3); HEMATOCRIT 37.7 % (36.0-47.0); LYMPH # 0.9 x10^3/uL (1.0-4.8); LYMPH % 11 % (24-48); MEAN CORPUSCULAR HEMOGLOBIN 29 pg (25-35); MEAN CORPUSCULAR HGB CONC 32 g/dL (31-37); MEAN CORPUSCULAR VOLUME 91 fL (79-100); MONO # 0.8 x10^3/uL (0.0-1.1); MONO % 10 % (0-9); NEUT # 6.5 x10^3uL (1.8-7.7); NEUT % 78 % (31-73); PLATELET COUNT 153 x10^3/uL (140-400); RED BLOOD COUNT 4.16 x10^6/uL (3.50-5.40); WHITE BLOOD COUNT 8.3 x10^3/uL (4.0-11.0)
[2019-05-06 06:28] LABS: CALCIUM 8.7 mg/dL (8.5-10.1); CREATININE 0.9 mg/dL (0.6-1.0); GFR 72.4; POTASSIUM 3.4 mmol/L (3.5-5.1)
--- NOTE | 2019-05-06 06:47 | CONS ---
DATE OF CONSULTATION: 05/05/2019 NEUROLOGY CONSULTATION REFERRING PHYSICIAN: Dr. Mehta. REASON FOR CONSULTATION: Mental status changes. HISTORY OF PRESENT ILLNESS: This is an 83-year-old right-handed -Samoan female who was admitted through Emergency Room on account of acute mental status changes. According to her daughter, the patient was last seen at 3:00 p.m. yesterday. She was found in a chair and unresponsive. The patient has been diabetic and she is usually noncompliant with insulin usage. She is supposed to take Lantus 20 units a.m. and p.m. and NovoLog on sliding scale before meals. On arrival to Emergency Room, the patient was found unresponsive, only to noxious stimuli. She was unable to communicate or follow commands. Initial nonenhanced head CT scan revealed no evidence of acute intracranial process, but showed small vessel ischemic changes and generalized atrophy. The patient was found to be somewhat dehydrated. Apparently, she had been in a chair for several hours. No evidence of recent head injuries or falls and no weakness, seizure activity has been reported. PAST MEDICAL HISTORY: Positive for COPD; diabetes mellitus, insulin dependent; osteoporosis, osteoarthritis, hypothyroidism, skin cancer, hyperlipidemia and peripheral neuropathy. PAST SURGICAL HISTORY: Significant for colon resection for bowel obstruction, laparoscopic cholecystectomy, status post osteotomy, tubal ligations. FAMILY HISTORY: Mother of lung cancer. Sister had breast cancer and father is diabetic. SOCIAL HISTORY: The patient is a smoker. There is no history of alcohol abuse. No history of alcohol use. CURRENT HOME MEDICATIONS: Calcium with vitamin D, amlodipine 10 mg daily, insulin Humalog 5 units t.i.d. with meals, potassium 20 mEq daily, levothyroxine 125 mcg p.o. daily, Lantus 20 units subcutaneously b.i.d., Flomax 0.4 mg at bedtime, gabapentin 300 mg t.i.d., Lipitor 20 mg at bedtime, albuterol nebulizer. ALLERGIES: SULFA DRUGS. REVIEW OF SYSTEMS: A 10-point review of system was performed, as mentioned above in history of present illness, the patient is unable to communicate and unresponsive. PHYSICAL EXAMINATION: GENERAL: Well-developed, well-nourished female, not in acute distress. She weighs 63.5 kilos. VITAL SIGNS: Blood pressure 121/94, respiratory rate 13, pulse is 124 and regular, oxygen saturation 93% on room air. HEENT: Normocephalic, atraumatic, otherwise unremarkable. NECK: Supple. Negative for carotid bruit, lymphadenopathy or thyromegaly. LUNGS: Diminished breath sounds. No wheezing or rales. CARDIOVASCULAR: Regular rate and rhythm, normal S1, S2. ABDOMEN: Soft. EXTREMITIES: Negative for cyanosis, clubbing or edema. NEUROLOGICAL EXAMINATION: Mental status: The patient is unresponsive to verbal commands, but she withdraws her extremities to noxious stimuli. Further evaluation is limited at this time. Cranial nerves: Pupils are equal and sluggishly reactive to light and the extraocular movements are intact. There is no nystagmus. There is no facial motor asymmetry. Hearing is uncertain at this time as the patient is unresponsive. Further evaluation of mental status limited at this time. Motor examination: No focal muscle bulk was seen. The tone is normal. The patient only withdraws the extremities to noxious stimuli; however, she moves her upper and lower extremities spontaneously. Sensory examination: The patient withdraws her extremities to noxious stimuli. Deep tendon reflexes: Symmetric and hypoactive with equivocal Babinski. Gait: Not able to perform. LABORATORY DATA: CBC revealed white blood cells of 10,100, hemoglobin 11.2, hematocrit 34.6, platelet count 165,000. Chemistry: Sodium of 147, potassium 3.7, chloride, 116, pCO2 of 22, BUN 22, creatinine 1, glucose is 77, calcium 8.8. Hemoglobin A1c is 9.2. Vitamin B12 is 640. Urinalysis is negative for urinary tract infections. Urine drug screen is negative. Ammonia level from yesterday was less than 10 and TSH is low at 0.245. Troponin level is normal and lactic acid 1.4. IMPRESSION: 1. Acute encephalopathy, probably metabolic, of unknown etiology; however, the patient was dehydrated on admission. Other possible etiology, consider severe hypoglycemia due to noncompliance of insulin usage. 2. Multiple medical problems include diabetes mellitus, hyperlipidemia, hypothyroidism, osteoporosis and osteoarthritis. 3. Status post osteotomy after colon resection. RECOMMENDATIONS: 1. Continue with current management initiated by Dr. Mehta including careful hydration and monitor her mental status. 2. Electroencephalogram -- EEG. M James DOUGLAS MD DR: JAYME/princess JOB#: [id number] / [id number]
[2019-05-06] MEDS: POTASSIUM CHLORIDE 20 MEQ TABLET.ER. PO SCH ×2 (08:00→17:00)
[2019-05-06] MEDS: INSULIN LISPRO 300 UNITS/3 ML VIAL. SQ SCH ×6 (08:00→17:00)
[2019-05-06] MEDS: INSULIN GLARGINE SYRINGE. SQ SCH ×2 (08:51→20:54)
[2019-05-06] MEDS: ASCORBIC ACID 500 MG TABLET PO SCH (09:00)
[2019-05-06] MEDS ORDERED: FLU VAX QS 2019-20 (36MOS+)/PF 0.5 ML SYRINGE. VAX IM ONE (09:00)
[2019-05-06] MEDS: CALCIUM CARB/VIT D3 500/200 TABLET PO SCH (09:00)
[2019-05-06] MEDS: GABAPENTIN 300 MG CAPSULE. PO SCH ×3 (09:00→20:17)
[2019-05-06] MEDS: amLODIPine BESYLATE 10 MG TABLET PO SCH (09:00)
[2019-05-06] MEDS: LACTOBACILLUS RHAMNOSUS GG 1 CAPSULE. PO SCH ×2 (09:00→20:16)
--- NOTE | 2019-05-06 09:39 | PN ---
DATE: SUBJECTIVE: The patient continued to be unresponsive to verbal commands; however, she is moving all the times as if like she has pain somewhere. She moves her upper or lower extremities spontaneously. OBJECTIVE: GENERAL: Well-developed, well-nourished -Sudanese female, not in acute distress. VITAL SIGNS: Blood pressure 149/73, respiratory rate 22, pulse is 93, oxygen saturation 92% on room air. HEENT: Normocephalic, atraumatic, otherwise unremarkable. NECK: Supple. Negative for carotid bruit, lymphadenopathy, JVD or thyromegaly. LUNGS: Diminished breath sounds. CARDIOVASCULAR: Regular rhythm, normal S1, S2. ABDOMEN: Soft. EXTREMITIES: Negative for cyanosis, clubbing or edema. NEUROLOGICAL EXAM: Mental Status: The patient is lying in bed comfortably. She moans. She is moving all the time. She opens her eyes to verbal commands. Cranial nerves: The pupils are equal and slowly reactive to light. Extraocular movements are slow. There is no facial asymmetry. The patient has also upper and lower extremity to noxious stimuli. Deep tendon reflexes were symmetric and hypoactive without pathology responses. DIAGNOSTIC DATA: Carotid Doppler study revealed no evidence of significant carotid stenosis. CT of the abdomen revealed no acute changes, but showed postop changes of the left hemicolectomy with right lower quadrant colostomy. Ultrasound of the lower extremities revealed no evidence of DVTs. IMPRESSION: 1. Acute encephalopathy, possible metabolic versus viral infections. 2. Mild dehydration. 3. Multiple medical problems include diabetes mellitus, hyperlipidemia, hypothyroidism, osteoporosis and osteoarthritis, status post left hemicolectomy with post-osteotomy. RECOMMENDATIONS: 1. Continue with current management initiated by Dr. Mehta. 2. Careful hydration. 3. Electroencephalogram. 4. Daughter refused to have any aggressive measures as a spinal tap to rule out viral encephalitis. M James DOUGLAS MD DR: JAYME/princess JOB#: [id number] / [id number]
[2019-05-06] MEDS ORDERED: IOHEXOL 350 MG/ML 100 ML VIAL. IV ONE (10:30)
[2019-05-06] MEDS ORDERED: CONTRAST GIVEN MC PRN (10:30)
[2019-05-06] MEDS: KETOTIFEN FUMARATE 0.025% OPHT SOLUTION BOTTLE. OU SCH ×2 (10:43→20:16)
[2019-05-06] MEDS: ENOXAPARIN ** NOTE DOSE ** SYRINGE SQ SCH (10:45)
[2019-05-06] MEDS: BETAMETHASONE DP AUGMENTED 0.05% 15gm CREAM TUBE. TP SCH ×2 (10:45→20:17)
[2019-05-06] MEDS ORDERED: POTASSIUM CHLORIDE 30 MEQ in IV 1/2 NORMAL SALINE 1,000 ML IV SCH (11:00)
[2019-05-06] MEDS ORDERED: AA 3%/ELECTROLYTE-TPN SOLN/GLY 1,000 ML IV SCH (11:30)
[2019-05-06] MEDS: TAMSULOSIN 0.4 MG CAP.ER.24H. PO SCH (20:16)
[2019-05-06] MEDS: ATORVASTATIN CALCIUM 20 MG TABLET PO SCH (20:16)
[2019-05-07] VITALS (18 sets, daily range): BP systolic 137–164; BP diastolic 61–77
--- NOTE | 2019-05-07 00:37 | PN ---
DATE: SUBJECTIVE: The patient still has decreased mental status appeared to be some form of an encephalopathy. The patient is resting fairly comfortably, does not seem to be in any pain. Blood sugars seem to be on the rise. Sodium is still elevated at 150/3.4 and BUN and creatinine are good at 15 and 0.9. She has been changed over to procalamine off her lactated Ringer's and saline to give her additional nutrition. Lipids apparently are unavailable. OBJECTIVE: VITAL SIGNS: In any case, as noted with blood pressure is 150/70, respiratory rate 22, pulse 87. GENERAL: The patient's barely arousable. HEENT: The patient's pupils are reactive to light and accommodation. LUNGS: Otherwise, the patient's lungs are diminished, but clear. CARDIOVASCULAR: Regular sinus rhythm. ABDOMEN: Soft. The patient's colostomy appears to be extruding out of the wound itself, but she is producing stool. GENITOURINARY: Urine output is excellent. EXTREMITIES: Without clubbing, cyanosis, nor edema. NEUROLOGIC: As said, barely alert. Reflexes are diminished throughout the upper and lower extremities. Neurology has also evaluated her. IMPRESSION AND PLAN: I believe she has some type of metabolic encephalopathy. Type 2 diabetes, dehydration, hyperlipidemia, hypothyroidism, post left hemicolectomy. We will continue to monitor the patient accordingly and make further evaluation on her as indicated. Continue in the ICU for close monitoring. She is on prophylactic anticoagulants. CYNTHIA GONZALEZ MD DR: AL/princess JOB#: [id number] / [id number]
[2019-05-07] MEDS: LEVOTHYROXINE 125 MCG TABLET PO SCH (05:45)
[2019-05-07 06:43] LABS: BASO % 0 % (0-3); EOS % 0 % (0-3); HEMATOCRIT 37.2 % (36.0-47.0); LYMPH # 0.9 x10^3/uL (1.0-4.8); LYMPH % 9 % (24-48); MEAN CORPUSCULAR HEMOGLOBIN 30 pg (25-35); MEAN CORPUSCULAR HGB CONC 32 g/dL (31-37); MEAN CORPUSCULAR VOLUME 92 fL (79-100); MONO # 0.9 x10^3/uL (0.0-1.1); MONO % 9 % (0-9); NEUT # 8.4 x10^3uL (1.8-7.7); NEUT % 82 % (31-73); PLATELET COUNT 161 x10^3/uL (140-400); RED BLOOD COUNT 4.06 x10^6/uL (3.50-5.40); WHITE BLOOD COUNT 10.2 x10^3/uL (4.0-11.0)
[2019-05-07 06:45] LABS: CALCIUM 9.1 mg/dL (8.5-10.1); GFR 64.1; POTASSIUM 3.8 mmol/L (3.5-5.1)
[2019-05-07] MEDS: POTASSIUM CHLORIDE 20 MEQ TABLET.ER. PO SCH ×2 (07:32→17:00)
[2019-05-07] MEDS: INSULIN LISPRO 300 UNITS/3 ML VIAL. SQ SCH ×6 (07:32→17:00)
[2019-05-07] MEDS: LACTOBACILLUS RHAMNOSUS GG 1 CAPSULE. PO SCH (07:32)
[2019-05-07] MEDS: amLODIPine BESYLATE 10 MG TABLET PO SCH (07:33)
[2019-05-07] MEDS: ASCORBIC ACID 500 MG TABLET PO SCH (07:33)
[2019-05-07] MEDS: CALCIUM CARB/VIT D3 500/200 TABLET PO SCH (07:33)
[2019-05-07] MEDS: GABAPENTIN 300 MG CAPSULE. PO SCH ×2 (07:33→13:40)
[2019-05-07] MEDS: INSULIN GLARGINE SYRINGE. SQ SCH (07:33)
[2019-05-07] MEDS ORDERED: ENOXAPARIN 40 MG/0.4 ML SYRINGE. SQ SCH (10:00)
--- NOTE | 2019-05-07 10:48 | PN ---
DATE: SUBJECTIVE: The patient continued to be aphasic, not able to communicate. OBJECTIVE: GENERAL: Obese, -Moroc[place] female, not in acute distress. VITAL SIGNS: Blood pressure 156/77, respiratory rate 11, pulse is 85 and regular, oxygen saturation is 95% on room air, and temperature is 98.4. HEENT: Normocephalic, atraumatic, otherwise unremarkable. NECK: Supple. Negative for carotid bruit, lymphadenopathy or thyromegaly. LUNGS: Clear to A and P. CARDIOVASCULAR: Regular rhythm, normal S1, S2. There is no S3, S4 or murmur. ABDOMEN: Soft. Bowel sounds positive. EXTREMITIES: Negative for cyanosis, clubbing or edema. NEUROLOGICAL EXAM: The patient is aphasic and unable to follow directions; however, she opens eyes to verbal commands. She has flaccid upper and lower extremities. Sensory examination: The patient withdraws her lower extremity to noxious stimuli. LABORATORY DATA: CBC revealed white blood cells of 10.2 thousand, hemoglobin 12, hematocrit 37.2, platelet count 161,000. Chemistry revealed sodium of 148, potassium 3.8, chloride 115, CO2 of 24, BUN 28, creatinine 1, glucose 198 and calcium 9.1. IMPRESSION: 1. Acute encephalopathy, etiology uncertain. However, central nervous system pathology including acute stroke or viral encephalitis should be ruled out. 2. Multiple medical problems include diabetes mellitus, hyperlipidemia, hypothyroidism, osteoporosis, osteoarthritis and status post left hemicolectomy followed by post-osteotomy. RECOMMENDATIONS: 1. Await for an EEG. 2. The patient may need a repeat CT scan or brain MRI. 3. Continue with current management initiated by Dr. Mehta. M James DOUGLAS MD DR: JAYME/princess JOB#: [id number] / [id number]
[2019-05-07] MEDS: KETOTIFEN FUMARATE 0.025% OPHT SOLUTION BOTTLE. OU SCH (10:56)
[2019-05-07] MEDS: BETAMETHASONE DP AUGMENTED 0.05% 15gm CREAM TUBE. TP SCH (10:56)
--- NOTE | 2019-05-07 11:56 | RAD ---
PQRS Compliance Statement: One or more of the following individualized dose reduction techniques were utilized for this examination: 1. Automated exposure control 2. Adjustment of the mA and/or kV according to patient size 3. Use of iterative reconstruction technique CT head without contrast 05/07/2019 10:46 AM INDICATION: Worsening responsiveness COMPARISON: May 04, 2019 CT head TECHNIQUE: Multiple axial CT images of the head were obtained from skull base through the vertex without intravenous contrast. FINDINGS: Head: Ventricles, sulci and basal cisterns are prominent compatible with moderate to advanced generalized cerebral volume loss. Low-attenuation in the periventricular white matter is suggestive of chronic small vessel ischemic changes. There is no hydrocephalus. [place]-white matter differentiation is normal. There is no acute intracranial hemorrhage. There is no mass, mass effect or midline shift. Posterior fossa is normal in appearance. Sinus and calcifications are identified within the basal ganglia bilaterally. Visualized portions of the orbits are normal with exception of bilateral lens replacement. Mild to moderate mucosal thickening of the ethmoid air cells and sphenoid sinuses. Mastoid. Mastoid air cells are well aerated. Scalp and calvaria are normal. IMPRESSION: No acute intracranial hemorrhage. Moderate to advanced generalized cerebral volume loss. Low-attenuation in the periventricular white matter is suggestive of chronic small vessel ischemic changes. Electronically signed by: Maxine Montenegro MD (05/07/2019 11:53 AM) [email or web address]
--- NOTE | 2019-05-09 11:53 | EEG ---
DATE OF SERVICE: 05/06/2019 INDICATIONS: This is an 83-year-old right-handed -[place] Leonean female, who was referred for an EEG to rule out central nervous system pathology or seizure disorder. The patient was admitted to the Emergency Room on 05/04/2019, on account of acute mental status changes. Initial nonenhanced head CT scan and repeated nonenhanced head CT scan revealed no acute intracranial process, but it showed generalized atrophy. According to her daughter, the patient has had mental status changes just one day prior to this admission. EEG DESCRIPTION: This is a 24-channel EEG was performed, using the standard international 10-20 electrode placement system. Photic stimulation was performed, but hyperventilation was not performed because of the mental status changes. The EEG obtained with the patient in the drowsy state characterized by slowing of the posterior dominant rhythm at 5-6 cycles per second with an amplitude of 25-35 microvolts. It was bilaterally symmetric without attenuation with eye opening. The background shows diffuse slowing of theta activities at frequency of 5-6 cycles per second. The patient achieved stage 2 and early stage 3 sleep characterized by slowing of the posterior dominant rhythm and attenuation of the amplitudes. Photic stimulation produced no driving responses and hyperventilation was not performed. IMPRESSION: This is a moderately prolonged drowsy electroencephalogram. No epileptiform activities were seen. The lack of epileptiform discharges does not always rule out seizure; therefore, clinical correlation is advised. These findings are suggestive of diffuse cerebral dysfunctions. No focal slowing was noted throughout the recording. M James DOUGLAS MD DR: JAYME/princess JOB#: [id number] / [id number] [facility]
== END 2019-05-07 17:50 | disposition short-term general hospital (02) | DRG 637 ==
LOC: ER 17:40 → ICU 21:00
PROVIDERS: ADMIT Family Medicine; ATTEND Family Medicine
DX: E11.649 Type 2 diabetes mellitus with hypoglycemia without coma (principal); G93.41 Metabolic encephalopathy; R47.01 Aphasia; E87.0 Hyperosmolality and hypernatremia; E03.9 Hypothyroidism, unspecified; E11.42 Type 2 diabetes mellitus with diabetic polyneuropathy; E11.51 Type 2 diabetes mellitus with diabetic peripheral angiopathy without gangrene; E11.65 Type 2 diabetes mellitus with hyperglycemia; E78.00 Pure hypercholesterolemia, unspecified; E78.5 Hyperlipidemia, unspecified; E86.0 Dehydration; F03.90 Unspecified dementia, unspecified severity, without behavioral disturbance, psychotic disturbance, mood disturbance, and anxiety; F17.200 Nicotine dependence, unspecified, uncomplicated; J44.9 Chronic obstructive pulmonary disease, unspecified; M19.90 Unspecified osteoarthritis, unspecified site; M81.0 Age-related osteoporosis without current pathological fracture; Z79.4 Long term (current) use of insulin; Z79.899 Other long term (current) drug therapy; Z80.1 Family history of malignant neoplasm of trachea, bronchus and lung; Z80.3 Family history of malignant neoplasm of breast; Z82.49 Family history of ischemic heart disease and other diseases of the circulatory system; Z83.3 Family history of diabetes mellitus; Z85.828 Personal history of other malignant neoplasm of skin; Z90.49 Acquired absence of other specified parts of digestive tract; Z91.14 Patient's other noncompliance with medication regimen; F41.9 Anxiety disorder, unspecified; G89.29 Other chronic pain; Z88.2 Allergy status to sulfonamides
CPT/HCPCS: 36415; 51702; 70450; 71045; 74176; 80048; 80076; 80307; 81001; 82140; 82550; 82607; 82803; 82947; 83036; 83605; 83690; 83735; 83880; 84134; 84145; 84443; 84484; 85025; 85379; 85610; 85651; 85730; 87040; 87804; 90471; 90686; 93005; 93880; 93970; 95816; 96360; 96361; 96372; G0480; J0696; J1650; J1815; J2270; J3490; J7120; 97530; 99285-25